=== PATIENT | male | born 1960 | race Caucasian/White ===

== ENCOUNTER 2021-06-22 19:27 | Inpatient (IN) ==
[2021-06-22] MEDS ORDERED: ALBUT/IPRATROP 3MG/0.5MG NEB 3 ML VIAL NEB ONE (19:39)
--- NOTE | 2021-06-22 19:44 | Emergency Department Note ---
Impression & Plan Acute exacerbation of chronic obstructive airways disease, Respiratory failure ED Provider Note NAME: MALATHI MARISCAL AGE: 60 SEX: M : 1960 ARRIVES VIA: Ambulance INFORMANT: Patient ED PROVIDER(S): Mundo Hammonds DO CHIEF COMPLAINT: shortness of breath HPI: Patient is a 60-year-old male who presents to the ER for shortness of breath. Symptoms started about 2 weeks ago and have been gradually getting worse. Has been using his albuterol with limited improvement. He noticed persistent wheezing. He feels like he has pneumonia. He does have a cough but this is not new. No chest pain or loss of taste or smell. No belly pain, nausea, vomiting, or diarrhea. He was brought in by EMS and found to be 70%. He was placed on CPAP and transported. He was given 125 Solu-Medrol and a DuoNeb. He improved with CPAP. ROS: See above HPI for pertinent positives & negatives. A total of 10 systems reviewed and were otherwise negative. PAST MEDICAL HISTORY:See Below PAST SURGICAL HISTORY:See Below FAMILY HISTORY:See Below SOCIAL HISTORY:See Below HOME MEDICATIONS:See Below ALLERGIES:See Below VITALS:See Below PHYSICAL EXAMINATION: GENERAL: Sitting up in bed, alert, well appearing, well nourished, no distress, non-toxic EYE EXAM: normal conjunctiva. PERRL and EOM's grossly intact. OROPHARYNX: no exudate, no erythema, lips, buccal mucosa, and tongue normal and mucous membranes are moist NECK: supple, no nuchal rigidity, no adenopathy, non-tender LUNGS: Clear to auscultation. Normal chest wall mechanics HEART: no murmurs, S1 normal and S2 normal ABDOMEN: abdomen soft, non-tender, normo-active bowel sounds, no masses, no rebound or guarding. UPPER EXTREMITIES: upper extremities are grossly normal. LOWER EXTREMITIES: No pitting edema. NEURO EXAM: Normal sensorium, cranial nerves II-XII grossly intact, normal speech, no gross weakness of arms, no gross weakness of legs. MEDICAL DECISION MAKING: Patient is a 60-year-old male who presents ER for above-stated complaint. He is brought in by EMS on CPAP. Upon arrival is switched to BiPAP. He was given steroids and hour-long neb treatment prior to arrival. Labs show leukocytosis of 24,000 question of secondary to the 125 Solu-Medrol. VBG with a pH of 7.26 a nd a CO2 of 65. This was at the start of BiPAP. BMP along with LFTs and lactate was normal. Troponin was negative. Procalcitonin was normal. Covid was negative. Chest x-ray was clean. He was given steroids and fluids. Patient remained on BiPAP and was given hour-long DuoNeb. He was updated bedside and discussed the hospitalist for further evaluation. Triage Nursing notes reviewed. Limited review of prior medical records performed Vital Signs: reviewed and remarkable for hypoxic Differential diagnosis: Differential diagnoses includes but is not limited to pneumonia, bronchitis, COPD/Asthma exacerbation, pneumothorax, pulmonary embolism, congestive heart failure, acute coronary syndrome ER treatment provided: See below Diagnostics interpreted by me: ECG: Sinus tachy 106 Normal axis No PVCs Nonspecific ST wave changes in the inferior leads QTC 472 Cardiac Monitoring: An order was placed for continuous cardiac monitoring. The monitor shows a rate of 103 with sinus rhythm. Laboratory studies: As stated above and show below. Imaging studies: Portable AP upright 1 view chest shows no focal infiltrate or pneumothorax Consultation(s): Discussed with hospitalist for further evaluation Procedures: none Critical Care: I have personally spent 44 minutes of critical care time in the direct william gement of this patient. This includes bedside care, interpretation of diagnostic studies, and testing, discussion with consultants, patient, and family members, and other required patient management activities. This 44 minutes is in excess of all separately billable procedures. Past Med/Surg History Social History Smoking Status: Current every day smoker Tobacco Type: Cigarettes Preferred Language: Canadian Feels Safe at Home: Yes Allergies Allergies Allergy/AdvReac Type Severity Reaction Status Date / Time No Known Allergies Allergy Verified 06/22/21 20:28 Home Meds Home Medications Medication Instructions Recorded Confirmed aspirin 81 mg tablet,delayed 81 mg PO DAILY 06/22/21 06/22/21 release Results & Data (ED) Vital Signs Vital Signs - 24 hr 06/22/21 19:37 06/22/21 19:44 06/22/21 20:00 Temperature 36.8 C Temperature Source Oral Pulse Rate 104 H Pulse Rate [Right Finger] 103 H Pulse Rhythm [Right Finger] Regular Pulse Strength [Right Finger] Normal Respiratory Rate 18 22 Respiratory Effort / Characteristics Spontaneous Short of Breath SOB on Exertion Respiratory Depth Normal Respiratory Pattern Regular Blood Pressure 135/95 Blood Pressure [Right Arm] 142/113 H Blood Pressure Mean 108 Blood Pressure Mean [Right Arm] 122 Blood Pressure Position [Right Arm] Sitting Pulse Oximetry 97 100 Oxygen Delivery Method BiPAP BiPAP Oxygen Flow Rate Fraction of Inspired Oxygen 50 SaO2/FiO2 Ratio 194 Sepsis Recent Fever Within 48 Hours No Sepsis New/Unexplained Change in Mental Status No Sepsis Action Taken by Nursing No Action Required 06/22/21 20:02 06/22/21 20:04 06/22/21 20:06 Temperature Temperature Source Pulse Rate 101 H Pulse Rate [Right Finger] 102 H Pulse Rhythm [Right Finger] Pulse Strength [Right Finger] Respiratory Rate 21 22 Respiratory Effort / Characteristics Spontaneous Spontaneous Respiratory Depth Shallow Respiratory Pattern Regular Blood Pressure Blood Pressure [Right Arm] Blood Pressure Mean Blood Pressure Mean [Right Arm] Blood Pressure Position [Right Arm] Pulse Oximetry 100 100 Oxygen Delivery Method BiPAP Oxygen Flow Rate 0 Fraction of Inspired Oxygen 100 50 SaO2/FiO2 Ratio Sepsis Recent Fever Within 48 Hours Sepsis New/Unexplained Change in Mental Status Sepsis Action Taken by Nursing 06/22/21 20:14 06/22/21 21:30 Temperature Temperature Source Pulse Rate 105 H Pulse Rate [Right Finger] Pulse Rhythm [Right Finger] Pulse Strength [Right Finger] Respiratory Rate 20 Respiratory Effort / Characteristics Respiratory Depth Respiratory Pattern Blood Pressure 134/80 Blood Pressure [Right Arm] Blood Pressure Mean 98 Blood Pressure Mean [Right Arm] Blood Pressure Position [Right Arm] Pulse Oximetry 100 100 Oxygen Delivery Method BiPAP BiPAP Oxygen Flow Rate Fraction of Inspired Oxygen SaO2/FiO2 Ratio Sepsis Recent Fever Within 48 Hours Sepsis New/Unexplained Change in Mental Status Sepsis Action Taken by Nursing Laboratory Data Result diagrams: 06/22/21 19:40 06/22/21 19:40 Lab Results 06/22/21 06/22/21 06/22/21 Range/Units 19:40 19:40 19:40 WBC 24.06 H (4.8-10.8) K/uL RBC 5.28 (4.7-6.1) M/uL Hgb 16.2 (14.0-18.0) g/dL Hct 49.0 (42-52) % MCV 92.8 (80-100) fL MCH 30.7 (25-34) pg MCHC 33.1 (32-36) g/dL RDW Std Deviation 43.9 (36.4-46.3) fL RDW Coeff of Osmin 12.9 (11.5-14.5) % Plt Count 467 H (130-400) K/uL MPV 10.0 (7.4-10.4) fL Immature Gran % (Auto) 0.4 % Neut % (Auto) 67.4 % Lymph % (Auto) 15.0 % [place] % (Auto) 4.6 % Eos % (Auto) 12.1 % Baso % (Auto) 0.5 % Neut # (Auto) 16.24 H (1.4-6.5) K/uL Lymph # (Auto) 3.61 H (1.2-3.4) K/uL [place] # (Auto) 1.10 H (0.11-0.59) K/uL Eos # (Auto) 2.90 H (0-0.5) K/uL Baso # (Auto) 0.12 (0-0.2) K/uL Immature Gran # (Auto) 0.09 H (0.00-0.02) K/uL VBG pH (7.36-7.41) VBG pCO2 (38-50) mmHg VBG pO2 mmHg VBG HCO3 mmol/L VBG O2 Saturation % VBG Base Excess mEq/L Barometric Pressure mm/Hg Sodium 140 (136-145) mmol/L Potassium 3.8 (3.5-5.1) mmol/L Chloride 105 (98-107) mmol/L Carbon Dioxide 27 (21-32) mmol/L Anion Gap 8.0 (3-11) BUN 19 H (7-18) mg/dl Creatinine 1.03 (0.6-1.4) mg/dl Est Cr Clr Drug Dosing 73.8 ml/min Est GFR ( Amer) 91.1 ml/min Est GFR (Non-Af Amer) 78.6 ml/min BUN/Creatinine Ratio 18.3 (10-20) Glucose 153 H (70-99) mg/dl Calcium 9.0 (8.5-10.1) mg/dl Magnesium 2.1 (1.8-2.4) mg/dl Total Bilirubin 0.2 (0.2-1) mg/dl AST 13 L (15-37) U/L ALT 21 (12-78) Alkaline Phosphatase 64 (45-117) U/L Troponin I < 0.015 (0-0.045) ng/ml Total Protein 8.2 (6.4-8.2) gm/dl Albumin 3.7 (3.4-5.0) gm/dl Globulin 4.5 H (2.5-4.0) gm/dl Albumin/Globulin Ratio 0.8 L (0.9-2) Lipase 106 (73-393) U/L Procalcitonin (0-0.5) ng/ml SARS-CoV-2 (PCR) NEGATIVE (Negative) Influenza Type A (PCR) Negative (Neg) Influenza Type B (PCR) Negative (Neg) RSV (RT-PCR) Negative (Neg) 06/22/21 06/22/21 Range/Units 19:40 19:49 WBC (4.8-10.8) K/uL RBC (4.7-6.1) M/uL Hgb (14.0-18.0) g/dL Hct (42-52) % MCV (80-100) fL MCH (25-34) pg MCHC (32-36) g/dL RDW Std Deviation (36.4-46.3) fL RDW Coeff of Osmin (11.5-14.5) % Plt Count (130-400) K/uL MPV (7.4-10.4) fL Immature Gran % (Auto) % Neut % (Auto) % Lymph % (Auto) % [place] % (Auto) % Eos % (Auto) % Baso % (Auto) % Neut # (Auto) (1.4-6.5) K/uL Lymph # (Auto) (1.2-3.4) K/uL [place] # (Auto) (0.11-0.59) K/uL Eos # (Auto) (0-0.5) K/uL Baso # (Auto) (0-0.2) K/uL Immature Gran # (Auto) (0.00-0.02) K/uL VBG pH 7.26 L (7.36-7.41) VBG pCO2 65 H (38-50) mmHg VBG pO2 42 mmHg VBG HCO3 28 mmol/L VBG O2 Saturation 67.3 % VBG Base Excess -0.7 mEq/L Barometric Pressure 734.2 mm/Hg Sodium (136-145) mmol/L Potassium (3.5-5.1) mmol/L Chloride (98-107) mmol/L Carbon Dioxide (21-32) mmol/L Anion Gap (3-11) BUN (7-18) mg/dl Creatinine (0.6-1.4) mg/dl Est Cr Clr Drug Dosing ml/min Est GFR ( Amer) ml/min Est GFR (Non-Af Amer) ml/min BUN/Creatinine Ratio (10-20) Glucose (70-99) mg/dl Calcium (8.5-10.1) mg/dl Magnesium (1.8-2.4) mg/dl Total Bilirubin (0.2-1) mg/dl AST (15-37) U/L ALT (12-78) Alkaline Phosphatase (45-117) U/L Troponin I (0-0.045) ng/ml Total Protein (6.4-8.2) gm/dl Albumin (3.4-5.0) gm/dl Globulin (2.5-4.0) gm/dl Albumin/Globulin Ratio (0.9-2) Lipase (73-393) U/L Procalcitonin < 0.05 (0-0.5) ng/ml SARS-CoV-2 (PCR) (Negative) Influenza Type A (PCR) (Neg) Influenza Type B (PCR) (Neg) RSV (RT-PCR) (Neg) Administered Medications Lactated Ringer's (Lr) 1,000 mls @ 100 mls/hr IV .Q10H ONE Stop: 06/23/21 08:15 Last Admin: 06/22/21 23:00 Dose: 100 mls/hr Documented by: [id number] Discontinued Medications Albuterol (Albut/Ipratrop 3mg/0.5mg Neb 3 Ml Vial) 12 ml NEB ONE ONE Stop: 06/22/21 19:40 Last Admin: 06/22/21 20:00 Dose: 12 ml Documented by: [id number] Levofloxacin/Dextrose (Levaquin/D5w) 750 mg in 150 mls @ 100 mls/hr IV NOW STA Stop: 06/22/21 22:23 Last Infusion: 06/23/21 00:55 Dose: 0 mls/hr Documented by: [id number] Infusion: 06/22/21 22:54 Dose: 100 mls/hr Documented by: [id number] Infusion: 06/22/21 21:41 Dose: 0 mls/hr Documented by: [id number] Admin: 06/22/21 21:38 Dose: 100 mls/hr Documented by: [id number] Thiamine HCl 100 mg/ Syringe 10 mls @ 2 mls/min IV NOW STA Stop: 06/22/21 22:18 Last Admin: 06/22/21 23:06 Dose: 2 mls/min Documented by: [id number] Ioversol (Optiray 320 125ml) 120 ml IV ONCE ONE Stop: 06/22/21 22:50 Last Admin: 06/22/21 22:50 Dose: 120 ml Documented by: [id number] Ketorolac Tromethamine (Ketorolac Tromethamine 15 Mg/Ml Vial) 15 mg IV NOW ONE Stop: 06/22/21 22:05 Last Admin: 06/22/21 22:59 Dose: 15 mg Documented by: [id number] Imaging Data Radiologist's Impression: Chest X-Ray 06/22/21 19:39 XR chest 1V portable HISTORY: Atypical Chest Pain COMPARISON: None. FINDINGS: The lungs are hyperexpanded with apical predominant emphysematous changes. No pneumothorax. No pleural effusions. The heart is normal in size. Interstitial prominence of the lung bases is likely due to vascular crowding. No focal lung consolidations to suggest pneumonia. Prior cholecystectomy. No evidence for pulmonary edema. IMPRESSION: Emphysema. Otherwise, no acute process within the chest. ACT 112: Negative or not required by law. Electronically signed by: Evans Saldivar M.D. 06/22/2021 8:04 PM Discharge Plan Visit Data Chief Complaint: Shortness of Breath/Dyspnea Stated Complaint: RESP DIST ED Provider: Mundo Hammonds Discharge Problem: Acute exacerbation of chronic obstructive airways disease, Respiratory failure Discharge Instructions Interventions: ED Discharge Assessment Last Done: 06/23/21 00:18 Discharge Problem: Respiratory failure Qualifiers: Chronicity: acute Respiratory failure complication: hypoxia Qualified Code(s): J96.01 - Acute respiratory failure with hypoxia
[2021-06-22 19:59] LABS: Basophils # (auto) 0.12 K/uL (0-0.2); Basophils % (auto) 0.5 %; Eosinophils % (auto) 12.1 %; Hemoglobin 16.2 g/dL (14.0-18.0); Immature Granulocytes # (auto) 0.09 K/uL (0.00-0.02); Immature Granulocytes % (auto) 0.4 %; Lymphocytes # (auto) 3.61 K/uL (1.2-3.4); Mean Corpuscular Hemoglobin 30.7 pg (25-34); Mean Corpuscular Hgb Conc 33.1 g/dL (32-36); Mean Corpuscular Volume 92.8 fL (80-100); Monocytes % (auto) 4.6 %; Neutrophils # (auto) 16.24 K/uL (1.4-6.5); Neutrophils % (auto) 67.4 %; Platelet Count 467 K/uL (130-400); RDW Coefficient of Variation 12.9 % (11.5-14.5); RDW Standard Deviation 43.9 fL (36.4-46.3); Red Blood Count 5.28 M/uL (4.7-6.1); White Blood Count 24.06 K/uL (4.8-10.8)
[2021-06-22 20:02] LABS: Base Excess VBG -0.7 mEq/L; Oxygen Saturation VBG 67.3 %; pH VBG 7.26 (7.36-7.41)
--- NOTE | 2021-06-22 20:06 | XRay Report ---
XR chest 1V portable HISTORY: Atypical Chest Pain COMPARISON: None. FINDINGS: The lungs are hyperexpanded with apical predominant emphysematous changes. No pneumothorax. No pleural effusions. The heart is normal in size. Interstitial prominence of the lung bases is like ly due to vascular crowding. No focal lung consolidations to suggest pneumonia. Prior cholecystectomy . No evidence for pulmonary edema. IMPRESSION: Emphysema. Otherwise, no acute process within the chest. ACT 112: Negative or not required by law. Electronically signed by: Evans Saldivar M.D. 06/22/2021 8:04 PM
[2021-06-22 20:17] LABS: Alanine Aminotransferase 21 (12-78); Albumin Level 3.7 gm/dl (3.4-5.0); Aspartate Aminotransferase 13 U/L (15-37); BUN Creatinine Ratio 18.3 (10-20); Blood Urea Nitrogen 19 mg/dl (7-18); Carbon Dioxide 27 mmol/L (21-32); Chloride 105 mmol/L (98-107); Creatinine Clr Calc Pharmacy 73.8 ml/min; Est GFR (African American) 91.1 ml/min; Est GFR (Non-African American) 78.6 ml/min; Glucose 153 mg/dl (70-99); Lipase 106 U/L (73-393); Potassium 3.8 mmol/L (3.5-5.1); Sodium 140 mmol/L (136-145)
[2021-06-22 20:22] LABS: Albumin Globulin Ratio 0.8 (0.9-2); Alkaline Phosphatase 64 U/L (45-117); Bilirubin,Total 0.2 mg/dl (0.2-1); Globulin 4.5 gm/dl (2.5-4.0); Total Protein 8.2 gm/dl (6.4-8.2); Troponin I < 0.015 ng/ml (0-0.045)
[2021-06-22 20:41] LABS: Influenza A virus by PCR Negative (Neg); Influenza B virus by PCR Negative (Neg); RSV by PCR Negative (Neg)
[2021-06-22] MEDS ORDERED: levoFLOXacin/D5W 750 MG/150 ML BAG IV STA (20:54)
[2021-06-22 21:51] LABS: Magnesium 2.1 mg/dl (1.8-2.4)
[2021-06-22] MEDS ORDERED: KETOROLAC TROMETHAMINE 15 MG/ML VIAL IV ONE (22:04)
--- NOTE | 2021-06-22 22:04 | History & Physical Report ---
Date of Service June 22, 2021 Assessment & Plan (1) Respiratory failure: Plan: Acute hypoxemic, hypercapnic respiratory failure Secondary to COPD exacerbation Atypical infection on initial CT read Severe sepsis SIRS plus hypoxemia secondary to above hypertension, slightly elevated hx recurrent TIAs on home aspirin for secondary prevention PVD status post surgery Hyperglycemia rule out DM Possible alcohol abuse ongoing tobacco abuse Medical telemetry Wean off BiPAP Follow-up ABG Steroid course, nebs RTC CS. Doxycycline Pulmonary consult if without improvement Check hemoglobin A1c Watch out for alcohol withdrawal Nicotine patch as needed Obtain complete prescription list from [facility] pharmacy. Patient unsure of doses of home medications. DVT prophylaxis. Lovenox subcu Full code Text document was generated using Snapchat voice recognition software. It may contain grammatical or spelling errors. Kindly contact undersigned for clarification of any documentation item in question. History of Present Illness Chief Complaint: Worsening cough, shortness of breath Primary Care Provider: NO PCP (Previous PCP Dr. Echols of [place], [place]) History obtained from patient and records. Medical history significant for COPD, hypertension, recurrent TIAs, PVD status post surgery, ongoing tobacco abuse. Patient moved to [place] from [place], [place] recently. 2 weeks ago, patient noted junky cough symptoms with worsening cough, shortness of breath. No aspiration. Chest pain from being out of breath as per patient. No known sick contacts. Persistent wheezing despite home albuterol puffs. O2 sats 70s upon arrival of EMS at home. Patient placed on the CPAP and transported to the ER. DuoNeb, Solu-Medrol, and Levaquin given at the ER for COPD exacerbation. Medical History as above Surgical History : Left carotid surgery Family History : Heart disease, stroke Personal/Social history : 1 pack daily, EtOH intake which can be heavy from time to time as per patient, disabled Allergies Allergy/AdvReac Type Severity Reaction Status Date / Time No Known Allergies Allergy Verified 06/22/21 20:28 Home Medications Medication Instructions Recorded Confirmed Type aspirin 81 mg tablet,delayed 81 mg PO DAILY 06/22/21 06/22/21 History release Past Med/Surg History Social History Smoking Status: Current every day smoker Tobacco Type: Cigarettes Do You Dip or Chew Tobacco: No; Hx Alcohol Use: Yes Alcohol type: beer, wine and hard liquor Hx Substance Use: No Preferred Language: Iranian Communication Ability: Effective Roll Handler Required: No marital status: Single Current Living Situation: Alone Other Information That Helps Us Care for You: No Feels Safe at Home: Yes Safety Concerns: Feels Safe At This Time Assistive Devices: Glasses Review of Systems Review of Systems: As per HPI, all 10 systems reviewed, all other ROS negative Physical Exam Physical Exam: GENERAL: umcomfortable, no respiratory distress SKIN: Normal color, warm HEENT: [place] palpebral conjunctivae, no ptosis, dry buccal mucosa, BiPAP in place NECK : Supple, no tenderness CHEST : Decreased breath sounds, expiratory wheezes,, no tenderness HEART : Tachycardic , systolic murmur heard over left sternal border and second right intercostal space ABDOMEN: Some distention, nontender EXTREMITIES : No LE swelling/tenderness, no other conspicuous deformities noted NEUROLOGIC : Coherent, no facial asymmetry, no other gross focality Results & Data Results & Data ([facility]) Vital Signs (Past 12 Hours) Vital Signs Temp Pulse Pulse Resp BP BP Pulse Ox 06/22/21 21:30 105 H 20 134/80 100 06/22/21 20:14 100 06/22/21 20:04 101 H 22 100 06/22/21 20:02 102 H 21 100 06/22/21 20:00 104 H 22 135/95 100 06/22/21 19:37 36.8 C 103 H 18 142/113 H 97 Laboratory Results Laboratory Results WBC 24.06 K/uL (4.8-10.8) H 06/22/21 19:40 RBC 5.28 M/uL (4.7-6.1) 06/22/21 19:40 Hgb 16.2 g/dL (14.0-18.0) 06/22/21 19:40 Hct 49.0 % (42-52) 06/22/21 19:40 MCV 92.8 fL (80-100) 06/22/21 19:40 MCH 30.7 pg (25-34) 06/22/21 19:40 MCHC 33.1 g/dL (32-36) 06/22/21 19:40 RDW Std Deviation 43.9 fL (36.4-46.3) 06/22/21 19:40 RDW Coeff of Osmin 12.9 % (11.5-14.5) 06/22/21 19:40 Plt Count 467 K/uL (130-400) H 06/22/21 19:40 MPV 10.0 fL (7.4-10.4) 06/22/21 19:40 Immature Gran % (Auto) 0.4 % 06/22/21 19:40 Neut % (Auto) 67.4 % 06/22/21 19:40 Lymph % (Auto) 15.0 % 06/22/21 19:40 [place] % (Auto) 4.6 % 06/22/21 19:40 Eos % (Auto) 12.1 % 06/22/21 19:40 Baso % (Auto) 0.5 % 06/22/21 19:40 Neut # (Auto) 16.24 K/uL (1.4-6.5) H 06/22/21 19:40 Lymph # (Auto) 3.61 K/uL (1.2-3.4) H 06/22/21 19:40 [place] # (Auto) 1.10 K/uL (0.11-0.59) H 06/22/21 19:40 Eos # (Auto) 2.90 K/uL (0-0.5) H 06/22/21 19:40 Baso # (Auto) 0.12 K/uL (0-0.2) 06/22/21 19:40 Immature Gran # (Auto) 0.09 K/uL (0.00-0.02) H 06/22/21 19:40 VBG pH 7.26 (7.36-7.41) L 06/22/21 19:49 VBG pCO2 65 mmHg (38-50) H 06/22/21 19:49 VBG pO2 42 mmHg 06/22/21 19:49 VBG HCO3 28 mmol/L 06/22/21 19:49 VBG O2 Saturation 67.3 % 06/22/21 19:49 VBG Base Excess -0.7 mEq/L 06/22/21 19:49 Barometric Pressure 734.2 mm/Hg 06/22/21 19:49 Sodium 140 mmol/L (136-145) 06/22/21 19:40 Potassium 3.8 mmol/L (3.5-5.1) 06/22/21 19:40 Chloride 105 mmol/L (98-107) 06/22/21 19:40 Carbon Dioxide 27 mmol/L (21-32) 06/22/21 19:40 Anion Gap 8.0 (3-11) 06/22/21 19:40 BUN 19 mg/dl (7-18) H 06/22/21 19:40 Creatinine 1.03 mg/dl (0.6-1.4) 06/22/21 19:40 Est Cr Clr Drug Dosing 73.8 ml/min 06/22/21 19:40 Est GFR ( Amer) 91.1 ml/min 06/22/21 19:40 Est GFR (Non-Af Amer) 78.6 ml/min 06/22/21 19:40 BUN/Creatinine Ratio 18.3 (10-20) 06/22/21 19:40 Glucose 153 mg/dl (70-99) H 06/22/21 19:40 Calcium 9.0 mg/dl (8.5-10.1) 06/22/21 19:40 Magnesium 2.1 mg/dl (1.8-2.4) 06/22/21 19:40 Total Bilirubin 0.2 mg/dl (0.2-1) 06/22/21 19:40 AST 13 U/L (15-37) L 06/22/21 19:40 ALT 21 (12-78) 06/22/21 19:40 Alkaline Phosphatase 64 U/L (45-117) 06/22/21 19:40 Troponin I < 0.015 ng/ml (0-0.045) 06/22/21 19:40 Total Protein 8.2 gm/dl (6.4-8.2) 06/22/21 19:40 Albumin 3.7 gm/dl (3.4-5.0) 06/22/21 19:40 Globulin 4.5 gm/dl (2.5-4.0) H 06/22/21 19:40 Albumin/Globulin Ratio 0.8 (0.9-2) L 06/22/21 19:40 Lipase 106 U/L (73-393) 06/22/21 19:40 SARS-CoV-2 (PCR) NEGATIVE (Negative) 06/22/21 19:40 Influenza Type A (PCR) Negative (Neg) 06/22/21 19:40 Influenza Type B (PCR) Negative (Neg) 06/22/21 19:40 RSV (RT-PCR) Negative (Neg) 06/22/21 19:40 Impressions Chest X-Ray 06/22/21 19:39 XR chest 1V portable HISTORY: Atypical Chest Pain COMPARISON: None. FINDINGS: The lungs are hyperexpanded with apical predominant emphysematous changes. No pneumothorax. No pleural effusions. The heart is normal in size. Interstitial prominence of the lung bases is likely due to vascular crowding. No focal lung consolidations to suggest pneumonia. Prior cholecystectomy. No evidence for pulmonary edema. IMPRESSION: Emphysema. Otherwise, no acute process within the chest. ACT 112: Negative or not required by law. Electronically signed by: Evans Saldivar M.D. 06/22/2021 8:[address] chest initial read: No pulmonaryembolism. Peribronchial thickening and mucus plugging. Mild ground glasswithin the right lower and middle lobe consistent with nonspecific pneumonitis. Potentiallybronchitis or atypical infection. Heart and aorta are unremarkable. EKG is from interpretation : Rate 105, sinus tachycardia, normal axis, no ischemia (1) Respiratory failure Chronicity: acute Respiratory failure complication: hypoxia Qualified Code(s): J96.01 - Acute respiratory failure with hypoxia
[2021-06-22] MEDS ORDERED: THIAMINE HCL 100 MG in SYRINGE 9 ML IV STA (22:14)
[2021-06-22] MEDS ORDERED: LACTATED RINGER'S 1,000 ML IV ONE (22:16)
[2021-06-22 22:36] LABS: Base Excess ABG -0.5 mEq/L (-9-1.8); HCO3 ABG 26 mmol/L (19-24); Oxygen Saturation ABG 99.6 % (90-95); PCO2 ABG 48 mmHg (35-46); PO2 ABG 220 mmHg (80-95); pH ABG 7.35 (7.35-7.45)
[2021-06-22 22:38] LABS: Allen Test POS (Pos)
[2021-06-22] MEDS ORDERED: OPTIRAY 320 125ml IV ONE (22:49)
[2021-06-22 22:50] LABS: Partial Thromboplastin Ratio 1.1; Partial Thromboplastin Time 29.8 Seconds (21.0-31.0)
[2021-06-23] MEDS ORDERED: ACETAMINOPHEN 325 MG TAB PO PRN (00:46)
[2021-06-23] MEDS ORDERED: oxyCODONE HCL IR 5 MG TAB (IMMEDIATE RELEASE) PO PRN (00:46)
[2021-06-23] MEDS ORDERED: PROMETHAZINE HCL 12.5 MG in SODIUM CHLORIDE 0.9% 50 ML IV PRN (00:46)
[2021-06-23] MEDS ORDERED: XOPENEX/ATROVENT 1.25mg/0.5MG NEB COMBO NEB SCH (01:00)
[2021-06-23] MEDS ORDERED: LORazepam 0.25 MG/0.5 ML VIAL IV PRN (01:16)
[2021-06-23] MEDS ORDERED: METOPROLOL TARTRATE 25 MG TAB PO STA (01:20)
[2021-06-23] MEDS: LEVALBUTEROL 1.25MG/0.5ML NEB INH SCH ×4 (01:21→18:01)
[2021-06-23] MEDS: IPRATROPIUM BROMIDE NEB SOLN 0.02% 2.5 ML VIAL INH SCH ×4 (01:21→18:01)
--- NOTE | 2021-06-23 07:27 | CT Scan Report ---
CT angio chest PE protocol CLINICAL HISTORY: sob COMPARISON STUDY: Portable chest from 06/22/2021 CT DOSE: 347.83 mGy.cm TECHNIQUE: CT Angio of the chest was performed.followed by image post processing with coronal, and s agittal MIP reformats. Contrast Volume: Optiray 320, 120 ml FINDINGS: Vasculature: There is homogeneous perfusion of the pulmonary vasculature bilaterally. No intraluminal filling defects or evidence for pulmonary embolus is seen. Airway: The airway is clear. No endobronchial lesion is identified. Lungs: Mild to moderate centrilobular emphysematous changes are seen particularly involving the upper lungs bilaterally. Very minimal groundglass opacity is seen involving the right middle lobe and righ t lower lobe. The lungs are otherwise clear of acute alveolar opacities, air bronchograms or pulmonar y nodules. Pleura: There is no evidence for pleural effusion. There is no evidence for pneumothorax. Mediastinum: There is no evidence for pathologic adenopathy. The heart size is within normal limits. There is mild coronary artery calcification. The thoracic aorta is within normal limits. There is ath erosclerotic calcification of the aortic arch and origin of the great vessels. There is no evidence f or pericardial effusion. Upper abdomen:The adrenal glands are normal bilaterally. There is a small hiatal hernia. Osseous structures: There is no acute osseous pathology. Impression: 1. No CTA evidence for pulmonary embolus. 2. Mild to moderate centrilobular emphysematous changes particularly involving the upper lobes bilate rally. 3. Very minimal groundglass opacity involving the right middle lobe and right lower lobe. This probab ly represents subsegmental atelectasis. Early viral type pneumonitis cannot be completely excluded an d Covid status should be evaluated. 4. Coronary artery calcification. 5. Additional nonacute findings are delineated above. ACT 112: Negative or not required by law. Electronically signed by: Gigi Greene M.D. 06/23/2021 7:25 AM
[2021-06-23 07:50] LABS: Estimated Average Glucose 134 mg/dl; Hemoglobin A1C 6.3 % (4.5-5.6)
[2021-06-23] MEDS ORDERED: ASPIRIN 81 MG ECTAB PO SCH (09:00)
[2021-06-23] MEDS ORDERED: methylPREDNISolone 40 MG in SYRINGE 0 ML IV SCH (09:00)
[2021-06-23] MEDS: predniSONE 20 MG TAB PO SCH (09:15)
[2021-06-23 09:16] LABS: BUN Creatinine Ratio 19.3 (10-20); Calcium 9.2 mg/dl (8.5-10.1); Creatinine Clr Calc Pharmacy 75.9 ml/min; Est GFR (African American) 100.4 ml/min; Est GFR (Non-African American) 86.7 ml/min; Potassium 4.1 mmol/L (3.5-5.1)
[2021-06-23] MEDS: DOXYCYCLINE HYCLATE 100 MG CAP PO SCH ×2 (09:16→21:02)
[2021-06-23] MEDS: ASPIRIN 81 MG ECTAB PO SCH (09:16)
[2021-06-23] MEDS: THIAMINE HCL 100 MG TAB PO SCH (09:16)
[2021-06-23] MEDS: MULTIVITAMIN TAB PO SCH (09:16)
[2021-06-23] MEDS: amLODIPine BESYLATE 5 MG TAB PO SCH (09:17)
[2021-06-23] MEDS: METOPROLOL TARTRATE 25 MG TAB PO SCH ×2 (09:17→21:02)
[2021-06-23] MEDS: FOLIC ACID 1 MG TAB PO SCH (09:17)
[2021-06-23 09:27] LABS: Basophils # (auto) 0.01 K/uL (0-0.2); Basophils % (auto) 0.1 %; Eosinophils # (auto) 0.02 K/uL (0-0.5); Eosinophils % (auto) 0.1 %; Hematocrit (blood only) 45.2 % (42-52); Hemoglobin 14.9 g/dL (14.0-18.0); Immature Granulocytes # (auto) 0.05 K/uL (0.00-0.02); Immature Granulocytes % (auto) 0.4 %; Lymphocytes # (auto) 1.43 K/uL (1.2-3.4); Lymphocytes % (auto) 10.5 %; Mean Corpuscular Hemoglobin 30.2 pg (25-34); Mean Corpuscular Volume 91.7 fL (80-100); Mean Platelet Volume 9.9 fL (7.4-10.4); Monocytes % (auto) 1.5 %; Neutrophils # (auto) 11.94 K/uL (1.4-6.5); Neutrophils % (auto) 87.4 %; Platelet Count 452 K/uL (130-400); RDW Coefficient of Variation 12.9 % (11.5-14.5); RDW Standard Deviation 43.4 fL (36.4-46.3); Red Blood Count 4.93 M/uL (4.7-6.1); White Blood Count 13.65 K/uL (4.8-10.8)
[2021-06-23] MEDS ORDERED: NICOTINE 21 MG/24 HR TDSY TD ONE (10:15)
[2021-06-23] MEDS: ENOXAPARIN INJ 40 MG/0.4 ML SYR SQ SCH (11:01)
--- NOTE | 2021-06-23 15:53 | Electrocardiogram Report ---
Test Reason : Blood Pressure : / mmHG Vent. Rate : 106 BPM Atrial Rate : 106 BPM P-R Int : 144 ms QRS Dur : 078 ms QT Int : 356 ms P-R-T Axes : 078 067 078 degrees QTc Int : 472 ms Poor data quality, interpretation may be adversely affected Sinus tachycardia with Premature atrial complexes Right atrial enlargement Borderline ECG No previous ECGs available Confirmed by Wing Griffin ([id number]) on 06/23/2021 3:53:17 PM Referred By: REFERRED SELF Confirmed By:Wing Griffin
[2021-06-23 18:26] LABS: SARS CoV2 RNA(COVID-19) InHosp NEGATIVE (Negative)
--- NOTE | 2021-06-23 21:58 | Hospitalist Progress Note ---
Date of Service June 23, 2021 Assessment & Plan (1) Respiratory failure: Plan: Mostly related to COPD exacerbation CTA chest showed showedno evidence for pulmonary embolus. Very minimal groundglass opacity involving the right middle lobe and right lower lobe. T Covid 19, influenza type a and type B and RSV are negative Started on prednisone 40 mg daily and doxycycline Was placed on BIPAP on admission, currently on oxygen supplement via [place] Blood culture pending Continue oxygen supplement Continue neb treatment Sepsis Met criteria with tachycardia and elevated WBC CT showed minimal groundglass opacity involving the right middle lobe and right lower lobe. Blood cx pending Continue Doxycycline Continue monitor CBC Alcohol abuse Denies any hx of alcohol withdrawal or DT Last Alcohol drink was 2 weeks ago Alcohol level <3 Will monitor closely for sign of DT or alcohol withdrawn Counseling on alcohol cessation Tobacco abuse Nicotine patch Counseling on smoking cessation Hyperglycemia Possible related to steroid Hba1c 6.3 Counseling on lifestyle modification Continue monitor Hx TIA Continue aspirin DVT prophylaxis. Lovenox subcu Full code Admission and Anticipated Discharge Date Admission Date: June 22, 2021 Subjective Pt was seen and examined for follow up of SOB Lying in bed with no acute distress watching TV Pt said that his breathing slightly improves this morning He said that he has been coughing alot He said that he drink alcohol and his last drink was 2 weeks ago He said that he never had any history of alcohol withdrawal or DT in the past Denies any chest pain, palpitation, dizziness and fever Review of Systems Review of Systems: All systems reviewed & are unremarkable except as noted in Subjective Physical Exam Physical Exam: General- No acute distress Head- atraumatic Eyes- PERRL, EOMI, ENT- oropharynx clear Neck- supple, no JVD Lungs- +coarse BS Heart- regular rhythm; no murmur Abdomen- normal bowel sounds, soft, nontender Extremities- no calf tenderness Neuro- alert, oriented x 3; PERRL, EOMI; no facial palsy; no dysarthria Skin- warm & dry Results & Data Results & Data ([facility]) Vital Signs (Past 12 Hours) Vital Signs Temp Pulse Pulse Resp BP BP Pulse Ox 06/23/21 20:57 81 138/80 06/23/21 19:50 36.9 C 89 20 140/75 92 06/23/21 18:01 18 97 06/23/21 14:20 70 06/23/21 13:55 36.5 C 79 18 159/87 H 93 12/06/21 13:26 84 06/23/21 12:44 70 20 97 06/23/21 11:37 36.8 C 74 19 157/69 H 91 (1) Respiratory failure Chronicity: acute Respiratory failure complication: hypoxia Qualified Code(s): J96.01 - Acute respiratory failure with hypoxia
[2021-06-24] MEDS: LEVALBUTEROL 1.25MG/0.5ML NEB INH SCH ×4 (00:17→18:07)
[2021-06-24] MEDS: IPRATROPIUM BROMIDE NEB SOLN 0.02% 2.5 ML VIAL INH SCH ×4 (00:17→18:07)
[2021-06-24] MEDS: NICOTINE 21 MG/24 HR TDSY TD SCH (08:13)
[2021-06-24] MEDS: FOLIC ACID 1 MG TAB PO SCH (08:13)
[2021-06-24] MEDS: predniSONE 20 MG TAB PO SCH (08:13)
[2021-06-24] MEDS: amLODIPine BESYLATE 5 MG TAB PO SCH (08:13)
[2021-06-24] MEDS: ASPIRIN 81 MG ECTAB PO SCH (08:13)
[2021-06-24] MEDS: MULTIVITAMIN TAB PO SCH (08:13)
[2021-06-24] MEDS: THIAMINE HCL 100 MG TAB PO SCH (08:13)
[2021-06-24] MEDS: METOPROLOL TARTRATE 25 MG TAB PO SCH ×2 (08:14→21:07)
[2021-06-24] MEDS: DOXYCYCLINE HYCLATE 100 MG CAP PO SCH ×2 (08:51→21:06)
[2021-06-24] MEDS: ENOXAPARIN INJ 40 MG/0.4 ML SYR SQ SCH (10:01)
[2021-06-24] MEDS: oxyCODONE HCL IR 5 MG TAB (IMMEDIATE RELEASE) PO PRN ×2 (13:53→21:13)
--- NOTE | 2021-06-24 22:10 | Hospitalist Progress Note ---
Date of Service June 24, 2021 Assessment & Plan (1) Respiratory failure: Plan: Mostly related to COPD exacerbation CTA chest showed showedno evidence for pulmonary embolus. Very minimal groundglass opacity involving the right middle lobe and right lower lobe. T Covid 19, influenza type a and type B and RSV are negative Continue prednisone 40 mg daily and doxycycline Was placed on BIPAP on admission, currently on oxygen supplement via [place] Blood culture no growth Was weaned off oxygen saturating well on room air Continue neb treatment We will add Mucomyst and guaifenesin Sepsis Met criteria with tachycardia and elevated WBC CT showed minimal groundglass opacity involving the right middle lobe and right lower lobe. Blood cx no growth Continue Doxycycline Continue monitor CBC Alcohol abuse Denies any hx of alcohol withdrawal or DT Last Alcohol drink was 2 weeks ago Alcohol level <3 Continue monitor closely for sign of DT or alcohol withdrawn Counseling on alcohol cessation Tobacco abuse Nicotine patch Counseling on smoking cessation Hyperglycemia Possible related to steroid Hba1c 6.3 Counseling on lifestyle modification Continue monitor Hx TIA Continue aspirin DVT prophylaxis. Lovenox subcu Full code Admission and Anticipated Discharge Date Admission Date: June 22, 2021 Subjective Pt was seen and examined for follow up of SOB Lying in bed with no acute distress watching TV Pt said that his breathing is much better He continues to have a hard time to bring up his phlegm No sign of DVT or alcohol withdrawal Denies any chest pain, palpitation, dizziness and fever Review of Systems 2 Review of Systems: All systems reviewed & are unremarkable except as noted in Subjective Physical Exam Physical Exam: General- No acute distress Head- atraumatic Eyes- PERRL, EOMI, ENT- oropharynx clear Neck- supple, no JVD Lungs- +coarse BS Heart- regular rhythm; no murmur Abdomen- normal bowel sounds, soft, nontender Extremities- no calf tenderness Neuro- alert, oriented x 3; PERRL, EOMI; no facial palsy; no dysarthria Skin- warm & dry Results & Data Results & Data ([facility]) Vital Signs (Past 12 Hours) Vital Signs Temp Pulse Pulse Pulse Resp BP BP 06/24/21 19:00 36.7 C 101 H 18 142/86 H 06/24/21 18:08 74 16 06/24/21 15:31 37.0 C 78 18 162/88 H 06/24/21 14:19 74 06/24/21 11:47 69 16 06/24/21 11:12 37.0 C 66 18 129/83 Pulse Ox 06/24/21 19:00 98 06/24/21 18:08 93 06/24/21 15:31 94 06/24/21 14:19 06/24/21 11:47 95 06/24/21 11:12 94 (1) Respiratory failure Chronicity: acute Respiratory failure complication: hypoxia Qualified Code(s): J96.01 - Acute respiratory failure with hypoxia
[2021-06-24] MEDS: guaiFENesin 600 MG TABCR PO SCH (23:27)
[2021-06-24] MEDS: ACETYLCYSTEINE 10% INHAL SOLN 4 ML **DISPENSED BY RESP. INH SCH (23:32)
[2021-06-25] MEDS: ACETYLCYSTEINE 10% INHAL SOLN 4 ML **DISPENSED BY RESP. INH SCH ×3 (00:59→19:37)
[2021-06-25] MEDS: IPRATROPIUM BROMIDE NEB SOLN 0.02% 2.5 ML VIAL INH SCH ×4 (00:59→19:37)
[2021-06-25] MEDS: LEVALBUTEROL 1.25MG/0.5ML NEB INH SCH ×4 (01:00→19:37)
[2021-06-25 06:01] LABS: Hematocrit (blood only) 43.9 % (42-52); Hemoglobin 14.3 g/dL (14.0-18.0); Mean Corpuscular Hemoglobin 30.2 pg (25-34); Mean Corpuscular Hgb Conc 32.6 g/dL (32-36); Mean Corpuscular Volume 92.6 fL (80-100); Mean Platelet Volume 9.6 fL (7.4-10.4); Platelet Count 400 K/uL (130-400); RDW Standard Deviation 44.4 fL (36.4-46.3); Red Blood Count 4.74 M/uL (4.7-6.1)
[2021-06-25 06:34] LABS: BUN Creatinine Ratio 19.2 (10-20); Calcium 8.9 mg/dl (8.5-10.1); Creatinine Clr Calc Pharmacy 74.5 ml/min; Est GFR (African American) 92.2 ml/min; Est GFR (Non-African American) 79.5 ml/min; Magnesium 2.5 mg/dl (1.8-2.4); Potassium 3.7 mmol/L (3.5-5.1)
[2021-06-25 06:35] LABS: Phosphorus 2.4 mg/dl (2.5-4.9)
[2021-06-25] MEDS: predniSONE 20 MG TAB PO SCH (08:21)
[2021-06-25] MEDS: THIAMINE HCL 100 MG TAB PO SCH (08:21)
[2021-06-25] MEDS: METOPROLOL TARTRATE 25 MG TAB PO SCH ×2 (08:21→20:21)
[2021-06-25] MEDS: MULTIVITAMIN TAB PO SCH (08:21)
[2021-06-25] MEDS: guaiFENesin 600 MG TABCR PO SCH ×2 (08:22→20:21)
[2021-06-25] MEDS: FOLIC ACID 1 MG TAB PO SCH (08:22)
[2021-06-25] MEDS: amLODIPine BESYLATE 5 MG TAB PO SCH (08:23)
[2021-06-25] MEDS: DOXYCYCLINE HYCLATE 100 MG CAP PO SCH ×2 (08:23→20:21)
[2021-06-25] MEDS: ASPIRIN 81 MG ECTAB PO SCH (08:23)
[2021-06-25] MEDS: ENOXAPARIN INJ 40 MG/0.4 ML SYR SQ SCH (08:24)
[2021-06-25] MEDS: NICOTINE 21 MG/24 HR TDSY TD SCH (08:25)
--- NOTE | 2021-06-25 09:50 | Hospitalist Progress Note ---
Date of Service June 25, 2021 Assessment & Plan (1) Respiratory failure: Plan: Mostly related to COPD exacerbation CTA chest showed showedno evidence for pulmonary embolus. Very minimal groundglass opacity involving the right middle lobe and right lower lobe. T Covid 19, influenza type a and type B and RSV are negative Continue prednisone 40 mg daily and doxycycline Was placed on BIPAP on admission, then on oxygen supplement via [place] Blood culture no growth Was weaned off oxygen saturating well on room air Continue neb treatment added Mucomyst and guaifenesin Leukocytosis June 25, white blood cell count 21,000, possibly related to steroid use We will repeat chest x-ray and will obtain procalcitonin Sepsis Met criteria with tachycardia and elevated WBC CT showed minimal groundglass opacity involving the right middle lobe and right lower lobe. Blood cx no growth Continue Doxycycline Continue monitor CBC WBC elevated ( as above) Repeat chest x-ray, obtain procalcitonin Sputum culture ordered Alcohol abuse Denies any hx of alcohol withdrawal or DT Last Alcohol drink was 2 weeks ago Alcohol level <3 Continue monitor closely for sign of DT or alcohol withdrawn Counseling on alcohol cessation Tobacco abuse Nicotine patch Counseling on smoking cessation Hyperglycemia Possible related to steroid Hba1c 6.3 Counseling on lifestyle modification Continue monitor Hx TIA Continue aspirin DVT prophylaxis. Lovenox subcu Full code Admission and Anticipated Discharge Date Admission Date: June 22, 2021 Subjective Pt was seen and examined for follow up of SOB /CV exacerbation Lying in bed, sleeping, in no acute distress Currently he is on room air Pt reports his breathing is better but still cannot cough up any phlegm No sign of alcohol withdrawal at this time Denies any chest pain, palpitation, dizziness and fever Review of Systems Review of Systems: All systems reviewed & are unremarkable except as noted in Subjective Physical Exam Physical Exam: General- No acute distress Head- atraumatic Eyes- PERRL, EOMI, ENT- oropharynx clear Neck- supple, no JVD Lungs- +coarse BS, no wheezing Heart- regular rhythm; no murmur Abdomen- normal bowel sounds, soft, nontender Extremities- no calf tenderness, moves extremities Neuro- alert, oriented x 3; PERRL, EOMI; no facial palsy; no dysarthria, moves extremities Skin- warm & dry Results & Data Results & Data ([facility]) Vital Signs (Past 12 Hours) Vital Signs Temp Pulse Pulse Pulse Resp BP BP 06/25/21 07:23 81 06/25/21 07:22 37.2 C 78 20 151/88 H 06/25/21 05:56 84 16 06/25/21 04:00 36.8 C 69 18 151/82 H 06/25/21 01:00 68 16 06/24/21 23:00 36.7 C 72 18 156/91 H 06/24/21 22:17 73 Pulse Ox 06/25/21 07:23 06/25/21 07:22 93 06/25/21 05:56 94 06/25/21 04:00 100 06/25/21 01:00 98 06/24/21 23:00 95 06/24/21 22:17 Laboratory Results 06/25/21 06/25/21 Range/Units 05:45 05:45 WBC 21.00 H (4.8-10.8) K/uL RBC 4.74 (4.7-6.1) M/uL Hgb 14.3 (14.0-18.0) g/dL Hct 43.9 (42-52) % MCV 92.6 (80-100) fL MCH 30.2 (25-34) pg MCHC 32.6 (32-36) g/dL RDW Std Deviation 44.4 (36.4-46.3) fL RDW Coeff of Osmin 13.0 (11.5-14.5) % Plt Count 400 (130-400) K/uL MPV 9.6 (7.4-10.4) fL Sodium 139 (136-145) mmol/L Potassium 3.7 (3.5-5.1) mmol/L Chloride 107 (98-107) mmol/L Carbon Dioxide 27 (21-32) mmol/L Anion Gap 5.0 (3-11) BUN 20 H (7-18) mg/dl Creatinine 1.02 (0.6-1.4) mg/dl Est Cr Clr Drug Dosing 74.5 ml/min Est GFR ( Amer) 92.2 ml/min Est GFR (Non-Af Amer) 79.5 ml/min BUN/Creatinine Ratio 19.2 (10-20) Glucose 101 H (70-99) mg/dl Calcium 8.9 (8.5-10.1) mg/dl Phosphorus 2.4 L (2.5-4.9) mg/dl Magnesium 2.5 H (1.8-2.4) mg/dl Medications Administered Current Inpatient Medications Acetaminophen (Acetaminophen 325 Mg Tab) 650 mg PO Q4H PRN PRN Reason: Pain or Fever Stop: 07/23/21 00:45 Last Admin: 06/24/21 08:52 Dose: 650 mg Documented by: Acetylcysteine (Acetylcysteine 10% Inhal Soln 4 Ml Dispensed By Resp.) 5 ml INH Q12R [facility] Stop: 06/26/21 07:01 Last Admin: 06/25/21 05:55 Dose: 5 ml Documented by: Amlodipine Besylate (Amlodipine Besylate 5 Mg Tab) 2.5 mg PO QAM [facility] Stop: 07/23/21 08:59 Last Admin: 06/25/21 08:23 Dose: 2.5 mg Documented by: Aspirin (Aspirin 81 Mg Ectab) 81 mg PO DAILY [facility] Stop: 07/23/21 08:59 Last Admin: 06/25/21 08:23 Dose: 81 mg Documented by: Doxycycline Hyclate (Doxycycline Hyclate 100 Mg Cap) 100 mg PO BID [facility] Stop: 06/30/21 08:59 Last Admin: 06/25/21 08:23 Dose: 100 mg Documented by: Enoxaparin Sodium (Enoxaparin Inj 40 Mg/0.4 Ml Syr) 40 mg SQ QAM [facility] Stop: 07/23/21 08:59 Last Admin: 06/25/21 08:24 Dose: 40 mg Documented by: Folic Acid (Folic Acid 1 Mg Tab) 1 mg PO QAM [facility] Stop: 07/23/21 08:59 Last Admin: 06/25/21 08:22 Dose: 1 mg Documented by: Guaifenesin (Guaifenesin 600 Mg Tabcr) 600 mg PO Q12 [facility] Stop: 07/24/21 22:14 Last Admin: 06/25/21 08:22 Dose: 600 mg Documented by: Promethazine HCl 12.5 mg/ (Sodium Chloride) 50.5 mls @ 202 mls/hr IV Q6H PRN PRN Reason: Nausea And Vomiting Stop: 07/23/21 00:45 Lorazepam (Ativan) 0.25 mg in 0.5 mls @ 0.5 mls/min IV Q4H PRN PRN Reason: Anxiety Stop: 07/23/21 01:15 Ipratropium [place] (Ipratropium [place] Neb Soln 0.02% 2.5 Ml Vial) 0.5 mg INH Q6R [facility] Stop: 07/23/21 01:29 Last Admin: 06/25/21 05:55 Dose: 0.5 mg Documented by: Levalbuterol HCl (Levalbuterol 1.25mg/0.5ml Neb) 1.25 mg INH Q6R [facility] Stop: 07/23/21 01:29 Last Admin: 06/25/21 05:55 Dose: 1.25 mg Documented by: Metoprolol Tartrate (Metoprolol Tartrate 25 Mg Tab) 12.5 mg PO BID [facility] Stop: 07/23/21 08:59 Last Admin: 06/25/21 08:21 Dose: 12.5 mg Documented by: Miscellaneous (Remove Nicoderm Patch) 1 ea N/A DAILY@0859 [facility] Stop: 07/24/21 08:58 Last Admin: 06/25/21 08:33 Dose: 1 ea Documented by: Multivitamins (Multivitamin Tab) [facility] [place] [facility] Stop: 07/23/21 08:59 Last Admin: 06/25/21 08:21 Dose: 1 tab Documented by: Nicotine (Nicotine 21 Mg/24 Hr Tdsy) 21 mg TD QAM [facility] Stop: 07/24/21 08:59 Last Admin: 06/25/21 08:25 Dose: 21 mg Documented by: Oxycodone HCl (Oxycodone Hcl Ir 5 Mg Tab (Immediate Release)) 5 mg PO Q6H PRN PRN Reason: Pain Stop: 07/07/21 00:45 Last Admin: 06/24/21 21:13 Dose: 5 mg Documented by: Prednisone (Prednisone 20 Mg Tab) 40 mg PO DAILY [facility] Stop: 06/27/21 08:59 Last Admin: 06/25/21 08:21 Dose: 40 mg Documented by: Thiamine HCl (Thiamine Hcl 100 Mg Tab) 100 mg PO QAM [facility] Stop: 07/23/21 08:59 Last Admin: 06/25/21 08:21 Dose: 100 mg Documented by: (1) Respiratory failure Chronicity: acute Respiratory failure complication: hypoxia Qualified Code(s): J96.01 - Acute respiratory failure with hypoxia
[2021-06-25] MEDS: oxyCODONE HCL IR 5 MG TAB (IMMEDIATE RELEASE) PO PRN ×2 (09:57→20:20)
--- NOTE | 2021-06-25 16:46 | XRay Report ---
XR chest 1V portable CLINICAL HISTORY: follow up TECHNIQUE: Single frontal radiograph of the chest was obtained. Comparison: Comparison is made to chest one view 06/22/2021 FINDINGS: No lines and tubes are seen. Calcified aortic knob is seen. The lungs are clear. No evidence of pleur al effusion or pneumothorax. IMPRESSION: No acute chest disease. ACT 112: Negative or not required by law. Electronically signed by: Sidney Bailey M.D. 06/25/2021 4:44 PM
[2021-06-26] MEDS: LEVALBUTEROL 1.25MG/0.5ML NEB INH SCH ×4 (00:07→19:22)
[2021-06-26] MEDS: IPRATROPIUM BROMIDE NEB SOLN 0.02% 2.5 ML VIAL INH SCH ×4 (00:07→19:23)
[2021-06-26 06:32] LABS: Hematocrit (blood only) 47.5 % (42-52); Hemoglobin 15.5 g/dL (14.0-18.0); Mean Corpuscular Hemoglobin 30.5 pg (25-34); Mean Corpuscular Hgb Conc 32.6 g/dL (32-36); Mean Corpuscular Volume 93.5 fL (80-100); Mean Platelet Volume 9.9 fL (7.4-10.4); Platelet Count 424 K/uL (130-400); RDW Coefficient of Variation 13.1 % (11.5-14.5); RDW Standard Deviation 45.1 fL (36.4-46.3); Red Blood Count 5.08 M/uL (4.7-6.1); White Blood Count 17.26 K/uL (4.8-10.8)
[2021-06-26] MEDS: ACETYLCYSTEINE 10% INHAL SOLN 4 ML **DISPENSED BY RESP. INH SCH (07:21)
[2021-06-26 07:22] LABS: BUN Creatinine Ratio 17.4 (10-20); Calcium 9.2 mg/dl (8.5-10.1); Est GFR (African American) 92.2 ml/min; Est GFR (Non-African American) 79.5 ml/min; Magnesium 2.5 mg/dl (1.8-2.4); Phosphorus 2.9 mg/dl (2.5-4.9); Potassium 3.6 mmol/L (3.5-5.1)
[2021-06-26] MEDS: oxyCODONE HCL IR 5 MG TAB (IMMEDIATE RELEASE) PO PRN ×3 (08:12→21:52)
[2021-06-26] MEDS: DOXYCYCLINE HYCLATE 100 MG CAP PO SCH ×2 (08:12→21:52)
[2021-06-26] MEDS: MULTIVITAMIN TAB PO SCH (08:12)
[2021-06-26] MEDS: ASPIRIN 81 MG ECTAB PO SCH (08:13)
[2021-06-26] MEDS: FOLIC ACID 1 MG TAB PO SCH (08:13)
[2021-06-26] MEDS: METOPROLOL TARTRATE 25 MG TAB PO SCH ×2 (08:13→21:54)
[2021-06-26] MEDS: guaiFENesin 600 MG TABCR PO SCH ×2 (08:14→21:52)
[2021-06-26] MEDS: amLODIPine BESYLATE 5 MG TAB PO SCH (08:14)
[2021-06-26] MEDS: THIAMINE HCL 100 MG TAB PO SCH (08:14)
[2021-06-26] MEDS: predniSONE 20 MG TAB PO SCH (08:15)
[2021-06-26] MEDS: ENOXAPARIN INJ 40 MG/0.4 ML SYR SQ SCH (08:17)
[2021-06-26] MEDS: NICOTINE 21 MG/24 HR TDSY TD SCH (08:17)
[2021-06-26] MEDS ORDERED: POTASSIUM CHLORIDE CRTAB 20 MEQ TABCR PO STA (14:42)
--- NOTE | 2021-06-26 14:43 | Hospitalist Progress Note ---
Date of Service June 26, 2021 Assessment & Plan (1) Respiratory failure: Plan: Mostly related to COPD exacerbation CTA chest showed showedno evidence for pulmonary embolus. Very minimal groundglass opacity involving the right middle lobe and right lower lobe. T Covid 19, influenza type a and type B and RSV are negative Continue prednisone 40 mg daily and doxycycline Was placed on BIPAP on admission, then on oxygen supplement via [place] Blood culture no growth Was weaned off oxygen saturating well on room air Continue neb treatment added Mucomyst and guaifenesin Repeat CXR 06/25 -No acute chest disease. Procal. 06/25 - negative Leukocytosis 06/25, white blood cell count 21,000, possibly related to steroid use Repeated chest x-ray and obtained procalcitonin to r/o pna/ bacterial infection both unremarkable Sepsis Met criteria with tachycardia and elevated WBC CT showed minimal groundglass opacity involving the right middle lobe and right lower lobe. Blood cx no growth Continue Doxycycline Continue monitor CBC WBC elevated ( as above) Repeat chest x-ray, obtain procalcitonin - unremarkable Sputum culture ordered Alcohol abuse Denies any hx of alcohol withdrawal or DT Last Alcohol drink was 2 weeks ago Alcohol level <3 Continue monitor closely for sign of DT or alcohol withdrawn Counseling on alcohol cessation Tobacco abuse Nicotine patch Counseling on smoking cessation Hyperglycemia Possible related to steroid Hba1c 6.3 Counseling on lifestyle modification Continue monitor Hx TIA Continue aspirin DVT prophylaxis. Lovenox subcu Full code Admission and Anticipated Discharge Date Admission Date: June 22, 2021 Subjective Pt was seen and examined for follow up of SOB /CV exacerbation Sitting up in bed, in no acute distress Currently he is on room air Pt reports his breathing is better and he finally slep But he says that he still does not feel quite right and breathing is still somew hat difficult Denies any chest pain, palpitation, dizziness and fever Review of Systems Review of Systems: All systems reviewed & are unremarkable except as noted in Subjective Physical Exam Physical Exam: General- No acute distress Head- atraumatic Eyes- PERRL, EOMI, ENT- oropharynx clear Neck- supple, no JVD Lungs- mild rhonchi, mild diffuse wheezing Heart- regular rhythm; no murmur Abdomen- normal bowel sounds, soft, nontender Extremities- no calf tenderness, moves extremities Neuro- alert, oriented x 3; PERRL, EOMI; no facial palsy; no dysarthria, moves extremities Skin- warm & dry Results & Data Results & Data ([facility]) Vital Signs (Past 12 Hours) Vital Signs Temp Pulse Pulse Resp BP BP Pulse Ox 06/26/21 13:41 75 16 95 06/26/21 11:36 36.6 C 76 16 176/88 H 95 06/26/21 08:11 36.5 C 76 18 166/103 H 170/131 H 96 06/26/21 07:40 74 06/26/21 07:22 72 16 95 06/26/21 04:00 36.6 C 80 18 106/45 L 95 Laboratory Results 06/26/21 06/26/21 06/25/21 Range/Units 06:11 06:11 15:32 WBC 17.26 H (4.8-10.8) K/uL RBC 5.08 (4.7-6.1) M/uL Hgb 15.5 (14.0-18.0) g/dL Hct 47.5 (42-52) % MCV 93.5 (80-100) fL MCH 30.5 (25-34) pg MCHC 32.6 (32-36) g/dL RDW Std Deviation 45.1 (36.4-46.3) fL RDW Coeff of Osmin 13.1 (11.5-14.5) % Plt Count 424 H (130-400) K/uL MPV 9.9 (7.4-10.4) fL Sodium 137 (136-145) mmol/L Potassium 3.6 (3.5-5.1) mmol/L Chloride 106 (98-107) mmol/L Carbon Dioxide 26 (21-32) mmol/L Anion Gap 5.0 (3-11) BUN 18 (7-18) mg/dl Creatinine 1.02 (0.6-1.4) mg/dl Est Cr Clr Drug Dosing 73.0 ml/min Est GFR ( Amer) 92.2 ml/min Est GFR (Non-Af Amer) 79.5 ml/min BUN/Creatinine Ratio 17.4 (10-20) Glucose 107 H (70-99) mg/dl Calcium 9.2 (8.5-10.1) mg/dl Phosphorus 2.9 (2.5-4.9) mg/dl Magnesium 2.5 H (1.8-2.4) mg/dl Procalcitonin 0.07 (0-0.5) ng/ml Medications Administered Current Inpatient Medications Acetaminophen (Acetaminophen 325 Mg Tab) 650 mg PO Q4H PRN PRN Reason: Pain or Fever Stop: 07/23/21 00:45 Last Admin: 06/24/21 08:52 Dose: 650 mg Documented by: Amlodipine Besylate (Amlodipine Besylate 5 Mg Tab) 2.5 mg PO QAM [facility] Stop: 07/23/21 08:59 Last Admin: 06/26/21 08:14 Dose: 2.5 mg Documented by: Aspirin (Aspirin 81 Mg Ectab) 81 mg PO DAILY [facility] Stop: 07/23/21 08:59 Last Admin: 06/26/21 08:13 Dose: 81 mg Documented by: Doxycycline Hyclate (Doxycycline Hyclate 100 Mg Cap) 100 mg PO BID [facility] Stop: 06/30/21 08:59 Last Admin: 06/26/21 08:12 Dose: 100 mg Documented by: Enoxaparin Sodium (Enoxaparin Inj 40 Mg/0.4 Ml Syr) [facility] [place] Stop: 07/23/21 08:59 Last Admin: 06/26/21 08:17 Dose: 40 mg Documented by: Folic Acid (Folic Acid 1 Mg Tab) 1 mg PO QAM [facility] Stop: 07/23/21 08:59 Last Admin: 06/26/21 08:13 Dose: 1 mg Documented by: Guaifenesin (Guaifenesin 600 Mg Tabcr) 600 mg PO Q12 [facility] Stop: 07/24/21 22:14 Last Admin: 06/26/21 08:14 Dose: 600 mg Documented by: Promethazine HCl 12.5 mg/ (Sodium Chloride) 50.5 mls @ 202 mls/hr IV Q6H PRN PRN Reason: Nausea And Vomiting Stop: 07/23/21 00:45 Lorazepam (Ativan) 0.25 mg in 0.5 mls @ 0.5 mls/min IV Q4H PRN PRN Reason: Anxiety Stop: 07/23/21 01:15 Ipratropium [place] (Ipratropium [place] Neb Soln 0.02% 2.5 Ml Vial) 0.5 mg INH Q6R [facility] Stop: 07/23/21 01:29 Last Admin: 06/26/21 13:40 Dose: 0.5 mg Documented by: Levalbuterol HCl (Levalbuterol 1.25mg/0.5ml Neb) 1.25 mg INH Q6R [facility] Stop: 07/23/21 01:29 Last Admin: 06/26/21 13:40 Dose: 1.25 mg Documented by: Metoprolol Tartrate (Metoprolol Tartrate 25 Mg Tab) 12.5 mg PO BID [facility] Stop: 07/23/21 08:59 Last Admin: 06/26/21 08:13 Dose: 12.5 mg Documented by: Miscellaneous (Remove Nicoderm Patch) 1 ea N/A DAILY@0859 [facility] Stop: 07/24/21 08:58 Last Admin: 06/26/21 08:18 Dose: 1 ea Documented by: Multivitamins (Multivitamin Tab) [facility] [place] Stop: 07/23/21 08:59 Last Admin: 06/26/21 08:12 Dose: 1 tab Documented by: Nicotine (Nicotine 21 Mg/24 Hr Tdsy) 21 mg [facility] [place] Stop: 07/24/21 08:59 Last Admin: 06/26/21 08:17 Dose: 21 mg Documented by: Oxycodone HCl (Oxycodone Hcl Ir 5 Mg Tab (Immediate Release)) 5 mg PO Q6H PRN PRN Reason: Pain Stop: 07/07/21 00:45 Last Admin: 06/26/21 08:12 Dose: 5 mg Documented by: Potassium Chloride (Potassium Chloride Crtab 20 Meq Tabcr) 40 meq PO NOW STA Stop: 06/26/21 14:43 Prednisone (Prednisone 20 Mg Tab) 40 mg PO DAILY [facility] Stop: 06/27/21 08:59 Last Admin: 06/26/21 08:15 Dose: 40 mg Documented by: Thiamine HCl (Thiamine Hcl 100 Mg Tab) 100 mg PO QAM [facility] Stop: 07/23/21 08:59 Last Admin: 06/26/21 08:14 Dose: 100 mg Documented by: (1) Respiratory failure Chronicity: acute Respiratory failure complication: hypoxia Qualified Code(s): J96.01 - Acute respiratory failure with hypoxia
[2021-06-27] MEDS: LEVALBUTEROL 1.25MG/0.5ML NEB INH SCH ×4 (01:15→19:26)
[2021-06-27] MEDS: IPRATROPIUM BROMIDE NEB SOLN 0.02% 2.5 ML VIAL INH SCH ×4 (01:16→19:26)
[2021-06-27] MEDS: DOXYCYCLINE HYCLATE 100 MG CAP PO SCH (08:25)
[2021-06-27] MEDS: ASPIRIN 81 MG ECTAB PO SCH (08:25)
[2021-06-27] MEDS: MULTIVITAMIN TAB PO SCH (08:26)
[2021-06-27] MEDS: FOLIC ACID 1 MG TAB PO SCH (08:26)
[2021-06-27] MEDS: METOPROLOL TARTRATE 25 MG TAB PO SCH ×2 (08:26→20:13)
[2021-06-27] MEDS: guaiFENesin 600 MG TABCR PO SCH ×2 (08:26→20:16)
[2021-06-27] MEDS: amLODIPine BESYLATE 5 MG TAB PO SCH (08:26)
[2021-06-27] MEDS: THIAMINE HCL 100 MG TAB PO SCH (08:26)
[2021-06-27] MEDS: ENOXAPARIN INJ 40 MG/0.4 ML SYR SQ SCH (08:27)
[2021-06-27] MEDS: NICOTINE 21 MG/24 HR TDSY TD SCH (08:27)
[2021-06-27 08:35] LABS: Hematocrit (blood only) 49.6 % (42-52); Hemoglobin 16.8 g/dL (14.0-18.0); Mean Corpuscular Hemoglobin 31.2 pg (25-34); Mean Corpuscular Hgb Conc 33.9 g/dL (32-36); Mean Corpuscular Volume 92.2 fL (80-100); Platelet Count 409 K/uL (130-400); RDW Standard Deviation 43.5 fL (36.4-46.3); Red Blood Count 5.38 M/uL (4.7-6.1); White Blood Count 21.18 K/uL (4.8-10.8)
[2021-06-27 09:10] LABS: BUN Creatinine Ratio 17.6 (10-20); Calcium 9.7 mg/dl (8.5-10.1); Creatinine Clr Calc Pharmacy 71.7 ml/min; Est GFR (Non-African American) 75.9 ml/min; Magnesium 2.4 mg/dl (1.8-2.4); Potassium 3.8 mmol/L (3.5-5.1)
[2021-06-27 09:11] LABS: Phosphorus 3.1 mg/dl (2.5-4.9)
[2021-06-27] MEDS: oxyCODONE HCL IR 5 MG TAB (IMMEDIATE RELEASE) PO PRN ×2 (13:30→20:14)
[2021-06-27] MEDS ORDERED: ALUMINUM/MAGNESIUM SUSP 30 ML UDC PO ONE (15:09)
[2021-06-27] MEDS ORDERED: POLYETHYLENE (MIRALAX) 17 GM PACK PO PRN (15:10)
--- NOTE | 2021-06-27 15:18 | Hospitalist Progress Note ---
Date of Service June 27, 2021 Assessment & Plan (1) Respiratory failure: Plan: Mostly related to COPD exacerbation CTA chest showed showedno evidence for pulmonary embolus. Very minimal groundglass opacity involving the right middle lobe and right lower lobe. T Covid 19, influenza type a and type B and RSV are negative Continue prednisone 40 mg daily and doxycycline Was placed on BIPAP on admission, then on oxygen supplement via [place] Blood culture no growth Was weaned off oxygen saturating well on room air Continue neb treatment added Mucomyst and guaifenesin Repeat CXR 06/25 -No acute chest disease. Procal. 06/25 - negative 06/27 -patient reports feeling weak and shaky, and having some abdominal discomfort Will obtain UA No bowel movement in past 3 days, patient reports eating well Will make sure he is on Protonix, will give Maalox, and stool softeners Continue to closely monitor Switch doxy to azithromycin Leukocytosis 06/25, white blood cell count 21,000, possibly related to steroid use Repeated chest x-ray and obtained procalcitonin to r/o pna/ bacterial infection both unremarkable Sepsis Met criteria with tachycardia and elevated WBC CT showed minimal groundglass opacity involving the right middle lobe and right lower lobe. Blood cx no growth Continued Doxycycline -> switch to azithro (d/t abd. discomfort) Continue monitor CBC WBC elevated ( as above) Repeat chest x-ray, obtain procalcitonin - unremarkable Sputum culture ordered Alcohol abuse Denies any hx of alcohol withdrawal or DT Last Alcohol drink was 2 weeks ago Alcohol level <3 Continue monitor closely for sign of DT or alcohol withdrawn Counseling on alcohol cessation Tobacco abuse Nicotine patch Counseling on smoking cessation Hyperglycemia Possible related to steroid Hba1c 6.3 Counseling on lifestyle modification Continue monitor Hx TIA Continue aspirin DVT prophylaxis. Lovenox subcu Full code Admission and Anticipated Discharge Date Admission Date: June 22, 2021 Subjective Pt was seen and examined for follow up of SOB /COPD exacerbation Sitting up in bed, in no acute distress Currently he is on room air Pt reports his breathing is better but overall he does not feel well today, says he has been weak and shaky Also reports not having a bowel movement in last 3 days, and some abdominal discomfort. Says he eats well. Review of Systems Review of Systems: All systems reviewed & are unremarkable except as noted in Subjective Physical Exam Physical Exam: General- No acute distress Head- atraumatic Eyes- PERRL, EOMI, ENT- oropharynx clear Neck- supple, no JVD Lungs- mild rhonchi, mild diffuse wheezing Heart- regular rhythm; no murmur Abdomen- normal bowel sounds, soft, nontender Extremities- no calf tenderness, moves extremities Neuro- alert, oriented x 3; PERRL, EOMI; no facial palsy; no dysarthria, moves extremities Skin- warm & dry Results & Data Results & Data ([facility]) Vital Signs (Past 12 Hours) Vital Signs Temp Pulse Pulse Resp BP Pulse Ox 06/27/21 14:35 36.8 C 77 20 133/85 94 06/27/21 11:57 86 16 95 06/27/21 11:08 36.9 C 82 20 135/80 96 06/27/21 07:33 78 06/27/21 07:25 36.8 C 85 20 190/71 H 97 06/27/21 07:10 78 16 97 Laboratory Results 06/27/21 06/27/21 Range/Units 08:15 08:15 WBC 21.18 H (4.8-10.8) K/uL RBC 5.38 (4.7-6.1) M/uL Hgb 16.8 (14.0-18.0) g/dL Hct 49.6 (42-52) % MCV 92.2 (80-100) fL MCH 31.2 (25-34) pg MCHC 33.9 (32-36) g/dL RDW Std Deviation 43.5 (36.4-46.3) fL RDW Coeff of Osmin 13.0 (11.5-14.5) % Plt Count 409 H (130-400) K/uL MPV 10.0 (7.4-10.4) fL Sodium 141 (136-145) mmol/L Potassium 3.8 (3.5-5.1) mmol/L Chloride 105 (98-107) mmol/L Carbon Dioxide 29 (21-32) mmol/L Anion Gap 7.0 (3-11) BUN 19 H (7-18) mg/dl Creatinine 1.06 (0.6-1.4) mg/dl Est Cr Clr Drug Dosing 71.7 ml/min Est GFR ( Amer) 88.0 ml/min Est GFR (Non-Af Amer) 75.9 ml/min BUN/Creatinine Ratio 17.6 (10-20) Glucose 97 (70-99) mg/dl Calcium 9.7 (8.5-10.1) mg/dl Phosphorus 3.1 (2.5-4.9) mg/dl Magnesium 2.4 (1.8-2.4) mg/dl Medications Administered Current Inpatient Medications Acetaminophen (Acetaminophen 325 Mg Tab) 650 mg PO Q4H PRN PRN Reason: Pain or Fever Stop: 07/23/21 00:45 Last Admin: 06/24/21 08:52 Dose: 650 mg Documented by: Amlodipine Besylate (Amlodipine Besylate 5 Mg Tab) [facility] [place] Stop: 07/23/21 08:59 Last Admin: 06/27/21 08:26 Dose: 2.5 mg Documented by: Aspirin (Aspirin 81 Mg Ectab) 81 mg PO DAILY [facility] Stop: 07/23/21 08:59 Last Admin: 06/27/21 08:25 Dose: 81 mg Documented by: Azithromycin (Azithromycin 250 Mg Tab) [facility] [place] Stop: 07/05/21 08:59 Docusate Sodium (Docusate Sodium 100 Mg Cap) 100 mg PO BID [facility] Stop: 07/27/21 20:59 Doxycycline Hyclate (Doxycycline Hyclate 100 Mg Cap) 100 mg PO BID [facility] Stop: 06/30/21 08:59 Last Admin: 06/27/21 08:25 Dose: 100 mg Documented by: Enoxaparin Sodium (Enoxaparin Inj 40 Mg/0.4 Ml Syr) [facility] [place] Stop: 07/23/21 08:59 Last Admin: 06/27/21 08:27 Dose: 40 mg Documented by: Folic Acid (Folic Acid 1 Mg Tab) 1 mg PO QAM [facility] Stop: 07/23/21 08:59 Last Admin: 06/27/21 08:26 Dose: 1 mg Documented by: Guaifenesin (Guaifenesin 600 Mg Tabcr) 600 mg PO Q12 [facility] Stop: 07/24/21 22:14 Last Admin: 06/27/21 08:26 Dose: 600 mg Documented by: Promethazine HCl 12.5 mg/ (Sodium Chloride) 50.5 mls @ 202 mls/hr IV Q6H PRN PRN Reason: Nausea And Vomiting Stop: 07/23/21 00:45 Lorazepam (Ativan) 0.25 mg in 0.5 mls @ 0.5 mls/min IV Q4H PRN PRN Reason: Anxiety Stop: 07/23/21 01:15 Ipratropium [place] (Ipratropium [place] Neb Soln 0.02% 2.5 Ml Vial) 0.5 mg INH Q6R [facility] Stop: 07/23/21 01:29 Last Admin: 06/27/21 11:57 Dose: 0.5 mg Documented by: Levalbuterol HCl (Levalbuterol 1.25mg/0.5ml Neb) 1.25 mg INH Q6R [facility] Stop: 07/23/21 01:29 Last Admin: 06/27/21 11:56 Dose: 1.25 mg Documented by: Metoprolol Tartrate (Metoprolol Tartrate 25 Mg Tab) 12.5 mg PO BID [facility] Stop: 07/23/21 08:59 Last Admin: 06/27/21 08:26 Dose: 12.5 mg Documented by: Miscellaneous (Remove Nicoderm Patch) 1 ea N/A DAILY@0859 [facility] Stop: 07/24/21 08:58 Last Admin: 06/27/21 08:27 Dose: 1 ea Documented by: Multivitamins (Multivitamin Tab) [address] [facility] Stop: 07/23/21 08:59 Last Admin: 06/27/21 08:26 Dose: 1 tab Documented by: Nicotine (Nicotine 21 Mg/24 Hr Tdsy) [address] [facility] Stop: 07/24/21 08:59 Last Admin: 06/27/21 08:27 Dose: 21 mg Documented by: Oxycodone HCl (Oxycodone Hcl Ir 5 Mg Tab (Immediate Release)) 5 mg PO Q6H PRN PRN Reason: Pain Stop: 07/07/21 00:45 Last Admin: 06/27/21 13:30 Dose: 5 mg Documented by: Pantoprazole Sodium (Pantoprazole 40 Mg Tab) [facility] [place] Stop: 07/27/21 15:14 Polyethylene Glycol (Polyethylene (Miralax) 17 Gm Pack) 17 gm PO DAILY PRN PRN Reason: Constipation Stop: 07/27/21 15:09 Prednisone (Prednisone 20 Mg Tab) [address] [facility] Stop: 07/28/21 08:59 Sucralfate (Sucralfate 1 Gm/10 Ml Udc) 1 gm PO QID [facility] Stop: 07/27/21 16:59 Thiamine HCl (Thiamine Hcl 100 Mg Tab) 100 mg PO QAM [facility] Stop: 07/23/21 08:59 Last Admin: 06/27/21 08:26 Dose: 100 mg Documented by: (1) Respiratory failure Chronicity: acute Respiratory failure complication: hypoxia Qualified Code(s): J96.01 - Acute respiratory failure with hypoxia
[2021-06-27] MEDS: CYANOCOBALAMIN 500 MCG TABLET (VITAMIN B-12) PO SCH (16:07)
[2021-06-27] MEDS: PANTOprazole 40 MG TAB PO SCH (16:08)
[2021-06-27] MEDS: SUCRALFATE 1 GM/10 ML UDC PO SCH ×2 (18:36→20:13)
[2021-06-27 19:46] LABS: Appearance Urine Clear (Clear); Bilirubin Urine Negative (Negative); Blood Urine Negative (Negative); Color Urine Yellow; Glucose Urine UA Negative (Negative); Ketones Urine Negative (Negative); Leukocyte Esterase Urine Negative (Negative); Nitrite Urine Negative (Negative); Protein Urine Negative (Negative); Specific Gravity Urine 1.017 (1.000-1.030); Urobilinogen Urine Negative (Negative)
[2021-06-27] MEDS: DOCUSATE SODIUM 100 MG CAP PO SCH (20:16)
[2021-06-28] MEDS: IPRATROPIUM BROMIDE NEB SOLN 0.02% 2.5 ML VIAL INH SCH ×4 (01:54→20:00)
[2021-06-28] MEDS: LEVALBUTEROL 1.25MG/0.5ML NEB INH SCH ×4 (01:54→20:00)
[2021-06-28] MEDS: oxyCODONE HCL IR 5 MG TAB (IMMEDIATE RELEASE) PO PRN ×3 (02:15→16:52)
[2021-06-28 06:50] LABS: BUN Creatinine Ratio 21.2 (10-20); Calcium 8.4 mg/dl (8.5-10.1); Creatinine Clr Calc Pharmacy 76.4 ml/min; Est GFR (African American) 95.5 ml/min; Est GFR (Non-African American) 82.4 ml/min; Magnesium 2.4 mg/dl (1.8-2.4); Phosphorus 3.5 mg/dl (2.5-4.9); Potassium 4.3 mmol/L (3.5-5.1)
--- NOTE | 2021-06-28 07:01 | Hospitalist Progress Note ---
Date of Service June 28, 2021 Assessment & Plan (1) Respiratory failure: Plan: Mostly related to COPD exacerbation CTA chest showed showedno evidence for pulmonary embolus. Very minimal groundglass opacity involving the right middle lobe and right lower lobe. T Covid 19, influenza type a and type B and RSV are negative Continue prednisone 40 mg daily and doxycycline Was placed on BIPAP on admission, then on oxygen supplement via [place] Blood culture no growth Was weaned off oxygen saturating well on room air Continue neb treatment added Mucomyst and guaifenesin Repeat CXR 06/25 -No acute chest disease. Procal. 06/25 - negative 06/27 -patient reports feeling weak and shaky, and having some abdominal discomfort obtained UA - negative No bowel movement in past 3 days, patient reports eating well started Protonix, gave Maalox, and stool softeners Continue to closely monitor Switch doxy to azithromycin Leukocytosis 06/25, white blood cell count 21,000, possibly related to steroid use Repeated chest x-ray and obtained procalcitonin to r/o pna/ bacterial infection both unremarkable Sepsis Met criteria with tachycardia and elevated WBC CT showed minimal groundglass opacity involving the right middle lobe and right lower lobe. Blood cx no growth Continued Doxycycline -> switch to azithro (d/t abd. discomfort) Continue monitor CBC WBC elevated ( as above) Repeat chest x-ray, obtain procalcitonin - unremarkable Sputum culture ordered -however patient cannot produce any sputum Alcohol abuse Denies any hx of alcohol withdrawal or DT Last Alcohol drink was 2 weeks ago Alcohol level <3 Continue monitor closely for sign of DT or alcohol withdrawn Counseling on alcohol cessation Tobacco abuse Nicotine patch Counseling on smoking cessation Hyperglycemia Possible related to steroid Hba1c 6.3 Counseling on lifestyle modification Continue monitor Hx TIA Continue aspirin DVT prophylaxis. Lovenox subcu Full code Admission and Anticipated Discharge Date Admission Date: June 22, 2021 Subjective Pt was seen and examined for follow up of SOB /COPD exacerbation Sitting up in bed, in no acute distress Currently he is on room air Pt reports his breathing is better but still not quite well He is having difficulty coughing anything up Review of Systems Review of Systems: All systems reviewed & are unremarkable except as noted in Subjective Physical Exam Physical Exam: General- No acute distress Head- atraumatic Eyes- PERRL, EOMI, ENT- oropharynx clear Neck- supple, no JVD Lungs- + rhonchi, no wheezing Heart- regular rhythm; no murmur Abdomen- normal bowel sounds, soft, nontender Extremities- no calf tenderness, moves extremities Neuro- alert, oriented x 3; PERRL, EOMI; no facial palsy; no dysarthria, moves extremities Skin- warm & dry Results & Data Results & Data ([facility]) Vital Signs (Past 12 Hours) Vital Signs Temp Pulse Pulse Resp BP BP Pulse Ox 06/28/21 03:22 36.9 C 71 18 137/84 94 06/28/21 01:55 72 16 95 06/28/21 00:18 102 H 06/27/21 22:41 36.3 C L 86 18 116/79 95 06/27/21 20:10 76 138/86 06/27/21 19:27 90 16 95 06/27/21 19:19 36.5 C 77 20 137/84 95 Laboratory Results 06/28/21 06/28/21 06/27/21 Range/Units 06:01 06:01 18:15 WBC 13.99 H (4.8-10.8) K/uL RBC 4.66 L (4.7-6.1) M/uL Hgb 14.1 (14.0-18.0) g/dL Hct 43.1 (42-52) % MCV 92.5 (80-100) fL MCH 30.3 (25-34) pg MCHC 32.7 (32-36) g/dL RDW Std Deviation 44.8 (36.4-46.3) fL RDW Coeff of Osmin 13.3 (11.5-14.5) % Plt Count 345 (130-400) K/uL MPV 10.3 (7.4-10.4) fL Sodium 141 (136-145) mmol/L Potassium 4.3 (3.5-5.1) mmol/L Chloride 109 H (98-107) mmol/L Carbon Dioxide 29 (21-32) mmol/L Anion Gap 3.0 (3-11) BUN 21 H (7-18) mg/dl Creatinine 0.99 (0.6-1.4) mg/dl Est Cr Clr Drug Dosing 76.4 ml/min Est GFR ( Amer) 95.5 ml/min Est GFR (Non-Af Amer) 82.4 ml/min BUN/Creatinine Ratio 21.2 H (10-20) Glucose 87 (70-99) mg/dl Calcium 8.4 L (8.5-10.1) mg/dl Phosphorus 3.5 (2.5-4.9) mg/dl Magnesium 2.4 (1.8-2.4) mg/dl Urine Color Yellow Urine Appearance Clear (Clear) Urine pH 5.0 (4.5-7.5) Ur Specific [place] 1.017 (1.000-1.030) Urine Protein Negative (Negative) Urine Glucose (UA) Negative (Negative) Urine Ketones Negative (Negative) Urine Blood Negative (Negative) Urine Nitrite Negative (Negative) Urine Bilirubin Negative (Negative) Urine Urobilinogen Negative (Negative) Ur Leukocyte Esterase Negative (Negative) Medications Administered Current Inpatient Medications Acetaminophen (Acetaminophen 325 Mg Tab) 650 mg PO Q4H PRN PRN Reason: Pain or Fever Stop: 07/23/21 00:45 Last Admin: 06/24/21 08:52 Dose: 650 mg Documented by: Amlodipine Besylate (Amlodipine Besylate 5 Mg Tab) 2.[facility] [place] Stop: 07/23/21 08:59 Last Admin: 06/27/21 08:26 Dose: 2.5 mg Documented by: Aspirin (Aspirin 81 Mg Ectab) 81 mg PO DAILY [facility] Stop: 07/23/21 08:59 Last Admin: 06/27/21 08:25 Dose: 81 mg Documented by: Azithromycin (Azithromycin 250 Mg Tab) 250 mg [facility] Stop: 07/05/21 08:59 Cyanocobalamin (Cyanocobalamin 500 Mcg Tablet (Vitamin B-12)) 1,000 mcg PO [facility]AAM[facility] Stop: 07/27/21 15:29 Last Admin: 06/27/21 16:07 Dose: 1,000 mcg Documented by: Docusate Sodium (Docusate Sodium 100 Mg Cap) 100 mg PO BID [facility] Stop: 07/27/21 20:59 Last Admin: 06/27/21 20:16 Dose: 100 mg Documented by: Doxycycline Hyclate (Doxycycline Hyclate 100 Mg Cap) 100 mg PO BID [facility] Stop: 06/30/21 08:59 Last Admin: 06/27/21 08:25 Dose: 100 mg Documented by: Enoxaparin Sodium (Enoxaparin Inj 40 Mg/0.4 Ml Syr) 40 mg SQ QA [facility] Stop: 07/23/21 08:59 Last Admin: 06/27/21 08:27 Dose: 40 mg Documented by: Folic Acid (Folic Acid 1 Mg Tab) 1 mg PO QAM [facility] Stop: 07/23/21 08:59 Last Admin: 06/27/21 08:26 Dose: 1 mg Documented by: Guaifenesin (Guaifenesin 600 Mg Tabcr) 600 mg PO Q12 [facility] Stop: 07/24/21 22:14 Last Admin: 06/27/21 20:16 Dose: 600 mg Documented by: Promethazine HCl 12.5 mg/ (Sodium Chloride) 50.5 mls @ 202 mls/hr IV Q6H PRN PRN Reason: Nausea And Vomiting Stop: 07/23/21 00:45 Lorazepam (Ativan) 0.25 mg in 0.5 mls @ 0.5 mls/min IV Q4H PRN PRN Reason: Anxiety Stop: 07/23/21 01:15 Ipratropium [place] (Ipratropium [place] Neb Soln 0.02% 2.5 Ml Vial) 0.5 mg INH Q6R [facility] Stop: 07/23/21 01:29 Last Admin: 06/28/21 01:54 Dose: 0.5 mg Documented by: Levalbuterol HCl (Levalbuterol 1.25mg/0.5ml Neb) 1.25 mg INH Q6R [facility] Stop: 07/23/21 01:29 Last Admin: 06/28/21 01:54 Dose: 1.25 mg Documented by: Metoprolol Tartrate (Metoprolol Tartrate 25 Mg Tab) 12.5 mg PO BID [facility] Stop: 07/23/21 08:59 Last Admin: 06/27/21 20:13 Dose: 12.5 mg Documented by: Miscellaneous (Remove Nicoderm Patch) 1 ea N/A DAILY@0859 [facility] Stop: 07/24/21 08:58 Last Admin: 06/27/21 08:27 Dose: 1 ea Documented by: Multivitamins (Multivitamin Tab) 1 tab PO QAM [facility] Stop: 07/23/21 08:59 Last Admin: 06/27/21 08:26 Dose: 1 tab Documented by: Nicotine (Nicotine 21 Mg/24 Hr Tdsy) 21 mg TD QAM [facility] Stop: 07/24/21 08:59 Last Admin: 06/27/21 08:27 Dose: 21 mg Documented by: Oxycodone HCl (Oxycodone Hcl Ir 5 Mg Tab (Immediate Release)) 5 mg PO Q6H PRN PRN Reason: Pain Stop: 07/07/21 00:45 Last Admin: 06/28/21 02:15 Dose: 5 mg Documented by: Pantoprazole Sodium (Pantoprazole 40 Mg Tab) 40 mg PO [facility] Stop: 07/27/21 15:14 Last Admin: 06/27/21 16:08 Dose: 40 mg Documented by: Polyethylene Glycol (Polyethylene (Miralax) 17 Gm Pack) 17 gm PO DAILY PRN PRN Reason: Constipation Stop: 07/27/21 15:09 Prednisone (Prednisone 20 Mg Tab) 20 mg PO [facility] Stop: 07/28/21 08:59 Sucralfate (Sucralfate 1 Gm/10 Ml Udc) 1 gm PO QID [facility] Stop: 07/27/21 16:59 Last Admin: 06/27/21 20:13 Dose: Not Given Documented by: Thiamine HCl (Thiamine Hcl 100 Mg Tab) 100 mg PO [facility] Stop: 07/23/21 08:59 Last Admin: 06/27/21 08:26 Dose: 100 mg Documented by: (1) Respiratory failure Chronicity: acute Respiratory failure complication: hypoxia Qualified Code(s): J96.01 - Acute respiratory failure with hypoxia
[2021-06-28 08:05] LABS: Hematocrit (blood only) 43.1 % (42-52); Hemoglobin 14.1 g/dL (14.0-18.0); Mean Corpuscular Hemoglobin 30.3 pg (25-34); Mean Corpuscular Hgb Conc 32.7 g/dL (32-36); Mean Corpuscular Volume 92.5 fL (80-100); Mean Platelet Volume 10.3 fL (7.4-10.4); Platelet Count 345 K/uL (130-400); RDW Coefficient of Variation 13.3 % (11.5-14.5); RDW Standard Deviation 44.8 fL (36.4-46.3); Red Blood Count 4.66 M/uL (4.7-6.1); White Blood Count 13.99 K/uL (4.8-10.8)
[2021-06-28] MEDS: amLODIPine BESYLATE 5 MG TAB PO SCH (08:39)
[2021-06-28] MEDS: ASPIRIN 81 MG ECTAB PO SCH (08:40)
[2021-06-28] MEDS: MULTIVITAMIN TAB PO SCH (08:40)
[2021-06-28] MEDS: METOPROLOL TARTRATE 25 MG TAB PO SCH ×2 (08:41→20:47)
[2021-06-28] MEDS: FOLIC ACID 1 MG TAB PO SCH (08:42)
[2021-06-28] MEDS: guaiFENesin 600 MG TABCR PO SCH ×2 (08:42→20:47)
[2021-06-28] MEDS: DOCUSATE SODIUM 100 MG CAP PO SCH ×2 (08:43→20:47)
[2021-06-28] MEDS: ENOXAPARIN INJ 40 MG/0.4 ML SYR SQ SCH (08:43)
[2021-06-28] MEDS: THIAMINE HCL 100 MG TAB PO SCH (08:44)
[2021-06-28] MEDS: SUCRALFATE 1 GM/10 ML UDC PO SCH ×4 (08:45→20:45)
[2021-06-28] MEDS: predniSONE 20 MG TAB PO SCH (08:45)
[2021-06-28] MEDS: AZITHROMYCIN 250 MG TAB PO SCH (08:46)
[2021-06-28] MEDS: CYANOCOBALAMIN 500 MCG TABLET (VITAMIN B-12) PO SCH (08:47)
[2021-06-28] MEDS: PANTOprazole 40 MG TAB PO SCH (08:47)
[2021-06-28] MEDS: NICOTINE 21 MG/24 HR TDSY TD SCH (08:48)
[2021-06-29] MEDS: IPRATROPIUM BROMIDE NEB SOLN 0.02% 2.5 ML VIAL INH SCH ×4 (01:13→20:40)
[2021-06-29] MEDS: LEVALBUTEROL 1.25MG/0.5ML NEB INH SCH ×4 (01:13→20:40)
[2021-06-29] MEDS: oxyCODONE HCL IR 5 MG TAB (IMMEDIATE RELEASE) PO PRN ×3 (01:36→21:01)
[2021-06-29] MEDS: ASPIRIN 81 MG ECTAB PO SCH (07:08)
[2021-06-29] MEDS: THIAMINE HCL 100 MG TAB PO SCH (07:08)
[2021-06-29] MEDS: MULTIVITAMIN TAB PO SCH (07:09)
[2021-06-29] MEDS: DOCUSATE SODIUM 100 MG CAP PO SCH ×2 (07:09→20:55)
[2021-06-29] MEDS: CYANOCOBALAMIN 500 MCG TABLET (VITAMIN B-12) PO SCH (07:10)
[2021-06-29] MEDS: FOLIC ACID 1 MG TAB PO SCH (07:10)
[2021-06-29] MEDS: PANTOprazole 40 MG TAB PO SCH (07:11)
[2021-06-29] MEDS: predniSONE 20 MG TAB PO SCH (07:12)
[2021-06-29] MEDS: AZITHROMYCIN 250 MG TAB PO SCH (07:12)
[2021-06-29] MEDS: amLODIPine BESYLATE 5 MG TAB PO SCH (07:12)
[2021-06-29] MEDS: METOPROLOL TARTRATE 25 MG TAB PO SCH ×2 (07:13→20:55)
[2021-06-29] MEDS: ENOXAPARIN INJ 40 MG/0.4 ML SYR SQ SCH (07:16)
[2021-06-29] MEDS: NICOTINE 21 MG/24 HR TDSY TD SCH (07:17)
[2021-06-29] MEDS: guaiFENesin 600 MG TABCR PO SCH ×2 (07:17→20:56)
[2021-06-29] MEDS: SUCRALFATE 1 GM/10 ML UDC PO SCH ×2 (07:18→13:02)
[2021-06-29 07:42] LABS: Hematocrit (blood only) 46.5 % (42-52); Hemoglobin 15.2 g/dL (14.0-18.0); Mean Corpuscular Hemoglobin 30.3 pg (25-34); Mean Corpuscular Hgb Conc 32.7 g/dL (32-36); Mean Corpuscular Volume 92.6 fL (80-100); Mean Platelet Volume 10.1 fL (7.4-10.4); Platelet Count 370 K/uL (130-400); RDW Coefficient of Variation 13.2 % (11.5-14.5); RDW Standard Deviation 44.9 fL (36.4-46.3); Red Blood Count 5.02 M/uL (4.7-6.1); White Blood Count 16.48 K/uL (4.8-10.8)
[2021-06-29 08:15] LABS: BUN Creatinine Ratio 17.1 (10-20); Calcium 8.9 mg/dl (8.5-10.1); Creatinine Clr Calc Pharmacy 79.7 ml/min; Est GFR (African American) 101.7 ml/min; Est GFR (Non-African American) 87.8 ml/min; Magnesium 2.5 mg/dl (1.8-2.4); Potassium 3.8 mmol/L (3.5-5.1)
[2021-06-29 08:17] LABS: Phosphorus 2.9 mg/dl (2.5-4.9)
--- NOTE | 2021-06-29 08:50 | Hospitalist Progress Note ---
Date of Service June 29, 2021 Assessment & Plan (1) Respiratory failure: Plan: Mostly related to COPD exacerbation CTA chest showed showedno evidence for pulmonary embolus. Very minimal groundglass opacity involving the right middle lobe and right lower lobe. T Covid 19, influenza type a and type B and RSV are negative Continue prednisone 40 mg daily and doxycycline Was placed on BIPAP on admission, then on oxygen supplement via [place] Blood culture no growth Was weaned off oxygen saturating well on room air Continue neb treatment added Mucomyst and guaifenesin Repeat CXR 06/25 -No acute chest disease. Procal. 06/25 - negative 06/27 -patient reports feeling weak and shaky, and having some abdominal discomfort obtained UA - negative No bowel movement in past 3 days, patient reports eating well started Protonix, gave Maalox, and stool softeners Continue to closely monitor Switch doxy to azithromycin Leukocytosis 06/25, white blood cell count 21,000, possibly related to steroid use Repeated chest x-ray and obtained procalcitonin to r/o pna/ bacterial infection both unremarkable R sided chest pain - pr reports comes and goes, but has had since came [facility] the [facility] - will repeat CXR (06/29) -repeat procal tomorrow AM Sepsis Met criteria with tachycardia and elevated WBC CT showed minimal groundglass opacity involving the right middle lobe and right lower lobe. Blood cx no growth Continued Doxycycline -> switch to azithro (d/t abd. discomfort) Continue monitor CBC WBC elevated ( as above) Repeat chest x-ray, obtain procalcitonin - unremarkable Sputum culture ordered -however patient cannot produce any sputum Alcohol abuse Denies any hx of alcohol withdrawal or DT Last Alcohol drink was 2 weeks ago Alcohol level <3 Continue monitor closely for sign of DT or alcohol withdrawn Counseling on alcohol cessation Tobacco abuse Nicotine patch Counseling on smoking cessation Hyperglycemia Possible related to steroid Hba1c 6.3 Counseling on lifestyle modification Continue monitor Hx TIA Continue aspirin DVT prophylaxis. Lovenox subcu Full code Admission and Anticipated Discharge Date Admission Date: June 22, 2021 Subjective Pt was seen and examined for follow up of SOB /COPD exacerbation Sitting up in bed, in no acute distress Currently he is on room air Pt reports his breathing is better but still not quite feeling well He is having difficulty coughing anything up Also reporting R sided chest pain- says he has had for some time now, comes and goes Review of Systems Review of Systems: All systems reviewed & are unremarkable except as noted in Subjective Physical Exam Physical Exam: General- No acute distress Head- atraumatic Eyes- PERRL, EOMI, ENT- oropharynx clear Neck- supple, no JVD Lungs- + rhonchi, no wheezing Heart- regular rhythm; no murmur Abdomen- normal bowel sounds, soft, nontender Extremities- no calf tenderness, moves extremities Neuro- alert, oriented x 3; PERRL, EOMI; no facial palsy; no dysarthria, moves extremities Skin- warm & dry Results & Data Results & Data ([facility]) Vital Signs (Past 12 Hours) Vital Signs Temp Pulse Pulse Resp BP BP Pulse Ox 06/29/21 08:32 72 06/29/21 07:51 77 20 94 06/29/21 07:42 36.6 C 74 18 169/96 H 91 06/29/21 02:41 36.6 C 71 16 120/76 95 06/29/21 01:15 76 16 91 06/28/21 23:38 72 06/28/21 22:51 36.7 C 74 18 139/86 95 Laboratory Results 06/29/21 06/29/21 Range/Units 07:28 07:28 WBC 16.48 H (4.8-10.8) K/uL RBC 5.02 (4.7-6.1) M/uL Hgb 15.2 (14.0-18.0) g/dL Hct 46.5 (42-52) % MCV 92.6 (80-100) fL MCH 30.3 (25-34) pg MCHC 32.7 (32-36) g/dL RDW Std Deviation 44.9 (36.4-46.3) fL RDW Coeff of Osmin 13.2 (11.5-14.5) % Plt Count 370 (130-400) K/uL MPV 10.1 (7.4-10.4) fL Sodium 138 (136-145) mmol/L Potassium 3.8 (3.5-5.1) mmol/L Chloride 105 (98-107) mmol/L Carbon Dioxide 28 (21-32) mmol/L Anion Gap 5.0 (3-11) BUN 16 (7-18) mg/dl Creatinine 0.94 (0.6-1.4) mg/dl Est Cr Clr Drug Dosing 79.7 ml/min Est GFR ( Amer) 101.7 ml/min Est GFR (Non-Af Amer) 87.8 ml/min BUN/Creatinine Ratio 17.1 (10-20) Glucose 96 (70-99) mg/dl Calcium 8.9 (8.5-10.1) mg/dl Phosphorus 2.9 (2.5-4.9) mg/dl Magnesium 2.5 H (1.8-2.4) mg/dl Medications Administered Current Inpatient Medications Acetaminophen (Acetaminophen 325 Mg Tab) 650 mg PO Q4H PRN PRN Reason: Pain or Fever Stop: 07/23/21 00:45 Last Admin: 06/24/21 08:52 Dose: 650 mg Documented by: Amlodipine Besylate (Amlodipine Besylate 5 Mg Tab) 2.5 mg PO [facility] Stop: 07/23/21 08:59 Last Admin: 06/29/21 07:12 Dose: 2.5 mg Documented by: Aspirin (Aspirin 81 Mg Ectab) 81 mg PO DAILY [facility] Stop: 07/23/21 08:59 Last Admin: 06/29/21 07:08 Dose: 81 mg Documented by: Azithromycin (Azithromycin 250 Mg Tab) 250 mg PO [facility] Stop: 07/05/21 08:59 Last Admin: 06/29/21 07:12 Dose: 250 mg Documented by: Cyanocobalamin (Cyanocobalamin 500 Mcg Tablet (Vitamin B-12)) [facility] Stop: 07/27/21 15:29 Last Admin: 06/29/21 07:10 Dose: 1,000 mcg Documented by: Docusate Sodium (Docusate Sodium 100 Mg Cap) 100 mg PO BID [facility] Stop: 07/27/21 20:59 Last Admin: 06/29/21 07:09 Dose: 100 mg Documented by: Doxycycline Hyclate (Doxycycline Hyclate 100 Mg Cap) 100 mg PO BID [facility] Stop: 06/30/21 08:59 Last Admin: 06/27/21 08:25 Dose: 100 mg Documented by: Enoxaparin Sodium (Enoxaparin Inj 40 Mg/0.4 Ml Syr) 40 [facility] SQ [facility] [place] Stop: 07/23/21 08:59 Last Admin: 06/29/21 07:16 Dose: 40 mg Documented by: Folic Acid (Folic Acid 1 Mg Tab) 1 mg PO QAM [facility] Stop: 07/23/21 08:59 Last Admin: 06/29/21 07:10 Dose: 1 mg Documented by: Guaifenesin (Guaifenesin 600 Mg Tabcr) 600 mg PO Q12 [facility] Stop: 07/24/21 22:14 Last Admin: 06/29/21 07:17 Dose: 600 mg Documented by: Promethazine HCl 12.5 mg/ (Sodium Chloride) 50.5 mls @ 202 mls/hr IV Q6H PRN PRN Reason: Nausea And Vomiting Stop: 07/23/21 00:45 Lorazepam (Ativan) 0.25 mg in 0.5 mls @ 0.5 mls/min IV Q4H PRN PRN Reason: Anxiety Stop: 07/23/21 01:15 Ipratropium [place] (Ipratropium [place] Neb Soln 0.02% 2.5 Ml Vial) 0.5 mg INH Q6R [facility] Stop: 07/23/21 01:29 Last Admin: 06/29/21 07:51 Dose: 0.5 mg Documented by: Levalbuterol HCl (Levalbuterol 1.25mg/0.5ml Neb) 1.25 mg INH Q6R [facility] Stop: 07/23/21 01:29 Last Admin: 06/29/21 07:51 Dose: 1.25 mg Documented by: Metoprolol Tartrate (Metoprolol Tartrate 25 Mg Tab) 12.5 mg PO BID [facility] Stop: 07/23/21 08:59 Last Admin: 06/29/21 07:13 Dose: 12.5 mg Documented by: Miscellaneous (Remove Nicoderm Patch) 1 ea N/A DAILY@0859 [facility] Stop: 07/24/21 08:58 Last Admin: 06/29/21 07:15 Dose: 1 ea Documented by: Multivitamins (Multivitamin Tab) [facility] [place] Stop: 07/23/21 08:59 Last Admin: 06/29/21 07:09 Dose: 1 tab Documented by: Nicotine (Nicotine 21 Mg/24 Hr Tdsy) 21 mg TD QAM [facility] Stop: 07/24/21 08:59 Last Admin: 06/29/21 07:17 Dose: 21 mg Documented by: Oxycodone HCl (Oxycodone Hcl Ir 5 Mg Tab (Immediate Release)) 5 mg PO Q6H PRN PRN Reason: Pain Stop: 07/07/21 00:45 Last Admin: 06/29/21 01:36 Dose: 5 mg Documented by: Pantoprazole Sodium (Pantoprazole 40 Mg Tab) 40 mg PO [facility] Stop: 07/27/21 15:14 Last Admin: 06/29/21 07:11 Dose: 40 mg Documented by: Polyethylene Glycol (Polyethylene (Miralax) 17 Gm Pack) 17 gm PO DAILY PRN PRN Reason: Constipation Stop: 07/27/21 15:09 Prednisone (Prednisone 20 Mg Tab) 20 mg PO [facility] Stop: 07/28/21 08:59 Last Admin: 06/29/21 07:12 Dose: 20 mg Documented by: Sucralfate (Sucralfate 1 Gm/10 Ml Udc) 1 gm PO QID [facility] Stop: 07/27/21 16:59 Last Admin: 06/29/21 07:18 Dose: 1 gm Documented by: Thiamine HCl (Thiamine Hcl 100 Mg Tab) 100 mg PO [facility] Stop: 07/23/21 08:59 Last Admin: 06/29/21 07:08 Dose: 100 mg Documented by: (1) Respiratory failure Chronicity: acute Respiratory failure complication: hypoxia Qualified Code(s): J96.01 - Acute respiratory failure with hypoxia
[2021-06-29] MEDS ORDERED: LIDOCAINE 5% 1 PATCH TD SCH (16:30)
--- NOTE | 2021-06-29 17:13 | XRay Report ---
XR chest 1V portable CLINICAL HISTORY: R sided chest pain TECHNIQUE: Single frontal radiograph of the chest was obtained. Comparison: Comparison is made to chest one view 07/07/2021 FINDINGS: No lines and tubes are seen. The cardiomediastinal silhouette is normal. The lungs are clear. No evid ence of pleural effusion or pneumothorax. IMPRESSION: No acute chest disease. ACT 112: Negative or not required by law. Electronically signed by: Sidney Bailey M.D. 06/29/2021 5:12 PM
[2021-06-30] MEDS: IPRATROPIUM BROMIDE NEB SOLN 0.02% 2.5 ML VIAL INH SCH ×3 (00:28→12:53)
[2021-06-30] MEDS: LEVALBUTEROL 1.25MG/0.5ML NEB INH SCH ×3 (00:28→12:54)
[2021-06-30 06:26] LABS: Hematocrit (blood only) 41.8 % (42-52); Hemoglobin 13.7 g/dL (14.0-18.0); Mean Corpuscular Hemoglobin 30.8 pg (25-34); Mean Corpuscular Hgb Conc 32.8 g/dL (32-36); Mean Corpuscular Volume 93.9 fL (80-100); Mean Platelet Volume 10.1 fL (7.4-10.4); Platelet Count 340 K/uL (130-400); RDW Coefficient of Variation 13.2 % (11.5-14.5); RDW Standard Deviation 45.9 fL (36.4-46.3); Red Blood Count 4.45 M/uL (4.7-6.1); White Blood Count 13.82 K/uL (4.8-10.8)
[2021-06-30 06:50] LABS: BUN Creatinine Ratio 19.9 (10-20); Calcium 8.9 mg/dl (8.5-10.1); Creatinine Clr Calc Pharmacy 80.3 ml/min; Est GFR (African American) 101.7 ml/min; Est GFR (Non-African American) 87.8 ml/min; Phosphorus 3.4 mg/dl (2.5-4.9); Potassium 3.8 mmol/L (3.5-5.1)
[2021-06-30 06:58] LABS: Magnesium 2.4 mg/dl (1.8-2.4)
[2021-06-30] MEDS: amLODIPine BESYLATE 5 MG TAB PO SCH (08:19)
[2021-06-30] MEDS: ASPIRIN 81 MG ECTAB PO SCH (08:20)
[2021-06-30] MEDS: AZITHROMYCIN 250 MG TAB PO SCH (08:22)
[2021-06-30] MEDS: CYANOCOBALAMIN 500 MCG TABLET (VITAMIN B-12) PO SCH (08:22)
[2021-06-30] MEDS: DOCUSATE SODIUM 100 MG CAP PO SCH (08:23)
[2021-06-30] MEDS: ENOXAPARIN INJ 40 MG/0.4 ML SYR SQ SCH (08:23)
[2021-06-30] MEDS: NICOTINE 21 MG/24 HR TDSY TD SCH (08:24)
[2021-06-30] MEDS: MULTIVITAMIN TAB PO SCH (08:24)
[2021-06-30] MEDS: FOLIC ACID 1 MG TAB PO SCH (08:24)
[2021-06-30] MEDS: guaiFENesin 600 MG TABCR PO SCH (08:24)
[2021-06-30] MEDS: METOPROLOL TARTRATE 25 MG TAB PO SCH (08:24)
[2021-06-30] MEDS: PANTOprazole 40 MG TAB PO SCH (08:25)
[2021-06-30] MEDS: predniSONE 20 MG TAB PO SCH (08:25)
[2021-06-30] MEDS: THIAMINE HCL 100 MG TAB PO SCH (08:25)
[2021-06-30] MEDS: oxyCODONE HCL IR 5 MG TAB (IMMEDIATE RELEASE) PO PRN ×2 (08:29→14:20)
--- NOTE | 2021-06-30 09:13 | Hospitalist Progress Note ---
Date of Service June 30, 2021 Assessment & Plan (1) Respiratory failure: Plan: Mostly related to COPD exacerbation/ ? CAP CTA chest showed showedno evidence for pulmonary embolus. Very minimal groundglass opacity involving the right middle lobe and right lower lobe. T Covid 19, influenza type a and type B and RSV are negative Continue prednisone 40 mg daily and doxycycline Was placed on BIPAP on admission, then on oxygen supplement via [place] Blood culture no growth Was weaned off oxygen saturating well on room air Continue neb treatment added Mucomyst and guaifenesin Repeat CXR 06/25 -No acute chest disease. Procal. 06/25 - negative 06/27 -patient reports feeling weak and shaky, and having some abdominal discomfort obtained UA - negative No bowel movement in past 3 days, patient reports eating well started Protonix, gave Maalox, and stool softeners Continue to closely monitor Switched doxy to azithromycin Leukocytosis 06/25, white blood cell count 21,000, possibly related to steroid use Repeated chest x-ray and obtained procalcitonin to r/o pna/ bacterial infection both unremarkable R sided chest pain - pr reports comes and goes, but has had since [facility] the [facility] - repeat CXR (06/29)- No acute chest disease. - repeat procal (06/30) - negative Sepsis on admission - however work up only remarkable for minimal groundglass opacity on chest CT treated for COPD exacerbation, mild CAP Met criteria with tachycardia and elevated WBC CT showed minimal groundglass opacity involving the right middle lobe and right lower lobe. Blood cx no growth Continued Doxycycline -> switch to azithro (d/t abd. discomfort) Continue monitor CBC WBC elevated ( as above) Repeat chest x-ray, obtain procalcitonin - unremarkable Sputum culture ordered -however patient cannot produce any sputum Alcohol abuse Denies any hx of alcohol withdrawal or DT Last Alcohol drink was 2 weeks ago Alcohol level <3 Continue monitor closely for sign of DT or alcohol withdrawn Counseling on alcohol cessation Tobacco abuse Nicotine patch Counseling on smoking cessation Hyperglycemia Possible related to steroid Hba1c 6.3 Counseling on lifestyle modification Continue monitor Hx TIA Continue aspirin DVT prophylaxis. Lovenox subcu Full code Admission and Anticipated Discharge Date Admission Date: June 22, 2021 Subjective Pt was seen and examined for follow up of SOB /COPD exacerbation Sitting up in bed, in no acute distress Currently he is on room air, resting comfortably No new events overnight, no new complaints No fevers, chills, increased chest pain or shortness of breath, no abdominal pain, no n/v Review of Systems Review of Systems: All systems reviewed & are unremarkable except as noted in Subjective Physical Exam Physical Exam: General- No acute distress Head- atraumatic Eyes- PERRL, EOMI, ENT- oropharynx clear Neck- supple, no JVD Lungs- + rhonchi, no wheezing Heart- regular rhythm; no murmur Abdomen- normal bowel sounds, soft, nontender Extremities- no calf tenderness, moves extremities Neuro- alert, oriented x 3; PERRL, EOMI; no facial palsy; no dysarthria, moves extremities Skin- warm & dry Results & Data Results & Data ([place]) Vital Signs (Past 12 Hours) Vital Signs Temp Pulse Pulse Resp BP BP Pulse Ox 06/30/21 07:53 69 06/30/21 07:45 77 20 97 06/30/21 07:20 36.6 C 78 18 123/79 96 06/30/21 03:00 36.8 C 74 18 130/79 97 06/30/21 00:29 76 18 94 06/30/21 00:00 36.7 C 70 19 124/75 98 06/29/21 23:32 71 Laboratory Results 06/30/21 06/30/21 06/30/21 Range/Units 06:00 06:00 06:00 WBC 13.82 H (4.8-10.8) K/uL RBC 4.45 L (4.7-6.1) M/uL Hgb 13.7 L (14.0-18.0) g/dL Hct 41.8 L (42-52) % MCV 93.9 (80-100) fL MCH 30.8 (25-34) pg MCHC 32.8 (32-36) g/dL RDW Std Deviation 45.9 (36.4-46.3) fL RDW Coeff of Osmin 13.2 (11.5-14.5) % Plt Count 340 (130-400) K/uL MPV 10.1 (7.4-10.4) fL Sodium 139 (136-145) mmol/L Potassium 3.8 (3.5-5.1) mmol/L Chloride 108 H (98-107) mmol/L Carbon Dioxide 27 (21-32) mmol/L Anion Gap 4.0 (3-11) BUN 19 H (7-18) mg/dl Creatinine 0.94 (0.6-1.4) mg/dl Est Cr Clr Drug Dosing 80.3 ml/min Est GFR ( Amer) 101.7 ml/min Est GFR (Non-Af Amer) 87.8 ml/min BUN/Creatinine Ratio 19.9 (10-20) Glucose 97 (70-99) mg/dl Calcium 8.9 (8.5-10.1) mg/dl Phosphorus 3.4 (2.5-4.9) mg/dl Magnesium 2.4 (1.8-2.4) mg/dl Procalcitonin < 0.05 (0-0.5) ng/ml Medications Administered Current Inpatient Medications Acetaminophen (Acetaminophen 325 Mg Tab) 650 mg PO Q4H PRN PRN Reason: Pain or Fever Stop: 07/23/21 00:45 Last Admin: 06/24/21 08:52 Dose: 650 mg Documented by: Amlodipine Besylate (Amlodipine Besylate 5 Mg Tab) 2.5 mg PO [facility] Stop: 07/23/21 08:59 Last Admin: 06/30/21 08:19 Dose: 2.5 mg Documented by: Aspirin (Aspirin 81 Mg Ectab) 81 mg PO DAILY [facility] Stop: 07/23/21 08:59 Last Admin: 06/30/21 08:20 Dose: 81 mg Documented by: Azithromycin (Azithromycin 250 Mg Tab) 250 mg PO [facility] Stop: 07/05/21 08:59 Last Admin: 06/30/21 08:22 Dose: 250 mg Documented by: Cyanocobalamin (Cyanocobalamin 500 Mcg Tablet (Vitamin B-12)) 1,000 mcg PO [facility] Stop: 07/27/21 15:29 Last Admin: 06/30/21 08:22 Dose: 1,000 mcg Documented by: Docusate Sodium (Docusate Sodium 100 Mg Cap) 100 mg PO BID [facility] Stop: 07/27/21 20:59 Last Admin: 06/30/21 08:23 Dose: 100 mg Documented by: Enoxaparin Sodium (Enoxaparin Inj 40 Mg/0.4 Ml Syr) 40 mg SQ [facility] Stop: 07/23/21 08:59 Last Admin: 06/30/21 08:23 Dose: 40 mg Documented by: Folic Acid (Folic Acid 1 Mg Tab) 1 mg PO QAM [facility] Stop: 07/23/21 08:59 Last Admin: 06/30/21 08:24 Dose: 1 mg Documented by: Guaifenesin (Guaifenesin 600 Mg Tabcr) 1,200 mg PO Q12 [facility] Stop: 07/29/21 20:59 Last Admin: 06/30/21 08:24 Dose: 1,200 mg Documented by: Promethazine HCl 12.5 mg/ (Sodium Chloride) 50.5 mls @ 202 mls/hr IV Q6H PRN PRN Reason: Nausea And Vomiting Stop: 07/23/21 00:45 Lorazepam (Ativan) 0.25 mg in 0.5 mls @ 0.5 mls/min IV Q4H PRN PRN Reason: Anxiety Stop: 07/23/21 01:15 Ipratropium [place] (Ipratropium [place] Neb Soln 0.02% 2.5 Ml Vial) 0.5 mg INH Q6R [facility] Stop: 07/23/21 01:29 Last Admin: 06/30/21 07:44 Dose: 0.5 mg Documented by: Levalbuterol HCl (Levalbuterol 1.25mg/0.5ml Neb) 1.25 mg INH Q6R [facility] Stop: 07/23/21 01:29 Last Admin: 06/30/21 07:44 Dose: 1.25 mg Documented by: Lidocaine (Lidocaine 5% 1 Patch) 1 patch TD DAILY@1800 [facility] Stop: 07/29/21 16:29 Last Admin: 06/29/21 18:04 Dose: 1 patch Documented by: Metoprolol Tartrate (Metoprolol Tartrate 25 Mg Tab) 12.5 mg PO BID [facility] Stop: 07/23/21 08:59 Last Admin: 06/30/21 08:24 Dose: 12.5 mg Documented by: Miscellaneous (Remove Nicoderm Patch) 1 ea N/A DAILY@0859 [facility] Stop: 07/24/21 08:58 Last Admin: 06/30/21 08:18 Dose: 1 ea Documented by: Miscellaneous (Remove Lidoderm Patch) 1 ea N/A DAILY@0600 [facility] Stop: 07/29/21 16:29 Last Admin: 06/30/21 05:37 Dose: 1 ea Documented by: Multivitamins (Multivitamin Tab) 1 tab PO [facility] Stop: 07/23/21 08:59 Last Admin: 06/30/21 08:24 Dose: 1 tab Documented by: Nicotine (Nicotine 21 Mg/24 Hr Tdsy) 21 mg TD [facility] Stop: 07/24/21 08:59 Last Admin: 06/30/21 08:24 Dose: 21 mg Documented by: Oxycodone HCl (Oxycodone Hcl Ir 5 Mg Tab (Immediate Release)) 5 mg PO Q6H PRN PRN Reason: Pain Stop: 07/07/21 00:45 Last Admin: 06/30/21 08:29 Dose: 5 mg Documented by: Pantoprazole Sodium (Pantoprazole 40 Mg Tab) 40 mg PO [facility] Stop: 07/27/21 15:14 Last Admin: 06/30/21 08:25 Dose: 40 mg Documented by: Polyethylene Glycol (Polyethylene (Miralax) 17 Gm Pack) 17 gm PO DAILY PRN PRN Reason: Constipation Stop: 07/27/21 15:09 Prednisone (Prednisone 20 Mg Tab) 20 mg PO [facility] Stop: 07/28/21 08:59 Last Admin: 06/30/21 08:25 Dose: 20 mg Documented by: Thiamine HCl (Thiamine Hcl 100 Mg Tab) 100 mg PO [facility] Stop: 07/23/21 08:59 Last Admin: 06/30/21 08:25 Dose: 100 mg Documented by: (1) Respiratory failure Chronicity: acute Respiratory failure complication: hypoxia Qualified Code(s): J96.01 - Acute respiratory failure with hypoxia
[2021-06-30] MEDS ORDERED: POLYETHYLENE (MIRALAX) 17 GM PACK PO ONE (14:00)
--- NOTE | 2021-06-30 14:16 | Discharge Summary ---
Date of Service June 30, 2021 Admission HPI Per Admitting Provider History obtained from patient and records. Medical history significant for COPD, hypertension, recurrent TIAs, PVD status post surgery, ongoing tobacco abuse. Patient moved to [place] from [place], [place] recently. 2 weeks ago, patient noted junky cough symptoms with worsening cough, shortness of breath. No aspiration. Chest pain from being out of breath as per patient. No known sick contacts. Persistent wheezing despite home albuterol puffs. O2 sats 70s upon arrival of EMS at home. Patient placed on the CPAP and transported to the ER. DuoNeb, Solu-Medrol, and Levaquin given at the ER for COPD exacerbation. Medical History as above Surgical History : Left carotid surgery Family History : Heart disease, stroke Personal/Social history : 1 pack daily, EtOH intake which can be heavy from time to time as per patient, disabled Admission Exam Per Admitting Provider GENERAL: uncomfortable, no respiratory distress SKIN: Normal color, warm HEENT: [place] palpebral conjunctivae, no ptosis, dry buccal mucosa, BiPAP in place NECK : Supple, no tenderness CHEST : Decreased breath sounds, expiratory wheezes,, no tenderness HEART : Tachycardic , systolic murmur heard over left sternal border and second right intercostal space ABDOMEN: Some distention, nontender EXTREMITIES : No LE swelling/tenderness, no other conspicuous deformities noted NEUROLOGIC : Coherent, no facial asymmetry, no other gross focality Principal Diagnosis COPD exacerbation Discharge Exam General- No acute distress Head- atraumatic Eyes- PERRL, EOMI, ENT- oropharynx clear Neck- supple, no JVD Lungs- + rhonchi, no wheezing Heart- regular rhythm; no murmur Abdomen- normal bowel sounds, soft, nontender Extremities- no calf tenderness, moves extremities Neuro- alert, oriented x 3; PERRL, EOMI; no facial palsy; no dysarthria, moves extremities Skin- warm & dry Discharge Data Allergies Allergy/AdvReac Type Severity Reaction Status Date / Time No Known Allergies Allergy Verified 06/22/21 20:28 Consultations 06/22/21 20:52 ED Decision to Admit Stat 06/23/21 08:00 Consult Health Information Management Routine Ordered Studies 06/22/21 22:05 CT angio chest PE protocol Urgent Impression: 1. No CTA evidence for pulmonary embolus. 2. Mild to moderate centrilobular emphysematous changes particularly involving the upper lobes bilaterally. 3. Very minimal groundglass opacity involving the right middle lobe and right lower lobe. This probably represents subsegmental atelectasis. Early viral type pneumonitis cannot be completely excluded and Covid status should be evaluated. 4. Coronary artery calcification. 5. Additional nonacute findings are delineated above. Hospital Course (1) Respiratory failure: Mostly related to COPD exacerbation/ possible CAP CTA chest showed showedno evidence for pulmonary embolus. Very minimal groundglass opacity involving the right middle lobe and right lower lobe. T Covid 19, influenza type a and type B and RSV are negative Continue prednisone 40 mg daily and doxycycline Was placed on BIPAP on admission, then on oxygen supplement via [place] Blood culture no growth Was weaned off oxygen saturating well on room air Continue neb treatment added Mucomyst and guaifenesin Repeat CXR 06/25 -No acute chest disease. Procal. 06/25 - negative 06/27 -patient reports feeling weak and shaky, and having some abdominal discomfort obtained UA - negative No bowel movement in past 3 days, patient reports eating well started Protonix, gave Maalox, and stool softeners Continue to closely monitor Switched doxy to azithromycin Leukocytosis 06/25, white blood cell count 21,000, possibly related to steroid use Repeated chest x-ray and obtained procalcitonin to r/o pna/ bacterial infection both unremarkable R sided chest pain - pr reports comes and goes, but has had since came to the hopital - repeat CXR (06/29)- No acute chest disease. - repeat procal (06/30) - negative Sepsis on admission - however work up only remarkable for minimal groundglass opacity on chest CT treated for COPD exacerbation, mild CAP Met criteria with tachycardia and elevated WBC CT showed minimal groundglass opacity involving the right middle lobe and right lower lobe. Blood cx no growth Continued Doxycycline -> switch to azithro (d/t abd. discomfort) Continue monitor CBC WBC elevated ( as above) Repeat chest x-ray, obtain procalcitonin - unremarkable Sputum culture ordered -however patient cannot produce any sputum Alcohol abuse Denies any hx of alcohol withdrawal or DT Last Alcohol drink was 2 weeks ago Alcohol level <3 Continue monitor closely for sign of DT or alcohol withdrawn Counseling on alcohol cessation Tobacco abuse Nicotine patch Counseling on smoking cessation Hyperglycemia Possible related to steroid Hba1c 6.3 Counseling on lifestyle modification Continue monitor Hx TIA Continue aspirin Total Time Total Time Spent Total Time Spent (In Minutes): 40 Discharge Plan Discharge Items Patient Disposition: Home - Self-Care Reason For Visit: RESPIRATORY FAILURE Discharge Diagnosis: COPD exacerbation Activity: Per Instructions section Non-emergency contact: Primary Care Provider Call non-emergency contact if: you have any medication questions and your symptoms worsen Follow-up/Referrals: Aleida Riggins MD [Hospitalist] - (Date & Time 07/07/2021 9:20 AM Provider Aleida Riggins MD Department Family Medicine [address] [facility] [place] ) Diet: Regular Addtl Attending Provider Instructions: Follow-up with your primary care physician, the appointment was scheduled for you for July 07. Finish antibiotic course with azithromycin as prescribed. Also finish steroid course of his prednisone as prescribed. Also recommend using guaifenesin, and flutter valve. Take pantoprazole, to protect your stomach mucosa from steroid. Continue taking your other home medications as previously. Recommend to bring all your medication bottles, when you come to establish care with your new primary care physician. Recommend quitting smoking, consider calling [employer], the free smoking cessation line. Pending Studies at Discharge: No Stand-Alone Forms: My [facility], Smoking Cessation Medications and DC Order Prescriptions: New azithromycin 250 mg Tablet 250 mg PO QAM 4 Days Qty: 4 RF: 0 nicotine [Nicoderm CQ] 21 mg/24 hr Patch 24 Hour 21 mg transdermal QAM 7 Days RF: 0 pantoprazole 40 mg Tablet,Delayed Release (Dr/Ec) 40 mg PO QAM Qty: 20 RF: 0 prednisone 20 mg Tablet 20 mg PO QAM 4 Days Qty: 4 RF: 0 guaifenesin [Mucinex] 600 mg Tablet Extended Release 12hr 1,200 mg PO Q12 7 Days Qty: 28 RF: 0 multivitamin with folic acid [Daily-Rosy (with folic acid)] 400 mcg Tablet 1 tab PO QAM Qty: 30 RF: 0 lidocaine 5 % Adhesive Patch,Medicated 1 patch transdermal QAM Qty: 15 RF: 0 Continued aspirin 81 mg Tablet,Delayed Release (Dr/Ec) 81 mg PO DAILY RF: 0 Discharge Orders: Discharge Order (Routine); Ordered 06/30/21 Ordered By: Hugo Mckeon/Other Patient Handouts: A1C, 5 Steps for Eating Healthier Admission Data Admit Date/Time: 06/22/21 22:10 Attending Provider: Hugo Mckeon Admit Provider: Elvis Copeland Primary Care Provider: PCP,NO Other Providers: Elvis Copeland
--- NOTE | 2021-07-14 08:09 | Coding Query ---
SEPSIS To promote full compliance with coding requirements relating to patient care, physician participation is requested in all cases of dental tech uncertainty. Please assist us with the question(s) below: In responding to this query, please exercise your independent professional judgement. The fact that a question is asked does not imply that any particular answer is desired or expected. We appreciate your clarification on this issue. Throughout the medical record, you have clearly documented a localized infection and your patient has clinical evidence of a generalized sepsis or severe sepsis. The term urosepsis is a nonspecific entity and is coded as an UTI. If the patient has sepsis, severe sepsis, from an urinary source or some other source, please clarify in your response below. The medical record reflects the following clinical findings: 06/28 Hospitalist note states " Meets criteria with tachycardia and increased WBC. CT showed mixed gorund glass opacities involving RLL and RML. Blood cultures no growth Procalcitonin unremarkable. Seeking to clarify if Sepsis was treated during this admission. Thanks for your help. Stuart Wilburn [facility] ____ ( )Bacteremia (Nonspecific laboratory finding of bacteria in the blood) Specify Organism ( ) Present on Admission ( ) Not present on admission ( ) Unable to clinically determine ( ) Septicemia (Systemic disease associated with the presence of pathogenic microorganisms in the blood): Specify Organism ( ) Present on Admission ( ) Not present on admission ( ) Unable to clinically determine ( ) Sepsis Specify Organism Specify Associated Condition/Diagnosis ( ) Present on Admission ( ) Not present on admission ( ) Unable to clinically determine ( ) Severe Sepsis (Sepsis associated with acute organ dysfunction) Specify Organism Specify Associated Condition/Diagnosis ( ) Present on Admission ( ) Not present on admission ( ) Unable to clinically determine ( ) Septic Shock (Severe sepsis with acute circulatory failure, unexplained by other causes) ( ) Present on Admission ( ) Not present on admission ( ) Unable to clinically determine (x ) Other, patient has: it was believed on admission that pt may have had sepsis. However further work up more consistent with COPD exacerbation and mild community acquired pna MTDD
== END 2021-06-30 17:39 | disposition home or self-care (01) | DRG 189 ==
LOC: ED 19:27 → 2S 22:10 → SUATTDRO 22:10 → 2S 06-23 00:18 → 2N 06-23 13:26